=== PATIENT | female | born 1990 | race Caucasian/White ===

== ENCOUNTER → 2016-11-18 | Outpatient (CLI) | payer MEDICAID | LOC: MW.CHOBGYN 12:18 | PROVIDERS: ATTEND Advanced Practice Midwife | DX: Z34.90 Encounter for supervision of normal pregnancy, unspecified, unspecified trimester (principal) | CPT/HCPCS: 36415; 82950; 85027 ==

== ENCOUNTER 2016-12-31 10:03 | Inpatient (IN) | payer MEDICAID ==
[2016-12-31] MEDS ORDERED: Misoprostol 200 MCG Tab PO PRN (11:08)
[2016-12-31] MEDS ORDERED: Methylergonovine 0.2 MG/1 ML Amp IM PRN (11:08)
[2016-12-31] MEDS ORDERED: Sodium Chloride 0.9% 10 ML Syringe FLUSH PRN (11:08)
[2016-12-31] MEDS ORDERED: Terbutaline 1 MG/ML SDV SUBCUT PRN (11:08)
[2016-12-31] MEDS ORDERED: Carboprost Tromethamine 250 MCG/1 ML Amp IM PRN (11:08)
[2016-12-31] MEDS ORDERED: Water For Irrigation,Sterile 1,000 ML Container IRR PRN (11:08)
[2016-12-31] MEDS ORDERED: Sodium Chloride 0.9% 2.5 ML Syringe FLUSH PRN (11:08)
[2016-12-31] MEDS ORDERED: Lidocaine 1% 50 ML MDV INJECT PRN (11:08)
[2016-12-31] MEDS ORDERED: Nalbuphine 10 MG/1 ML Vial IVPUSH PRN ×2 (11:08→13:38)
[2016-12-31] MEDS ORDERED: Misoprostol 25 MCG (1/4 of 100 MCG) Tab VAG SCH (11:15)
[2016-12-31] MEDS ORDERED: Oxytocin/Lactated Ringers 30 UNIT/500 ML BAG IV SCH ×2 (11:15)
[2016-12-31] MEDS ORDERED: Misoprostol 25 MCG (1/4 of 100 MCG) Tab PO SCH (11:15)
[2016-12-31 12:16] LABS: CHLORIDE,CL 113 mmol/L (98-110); SODIUM,NA 140 mmol/L (136-146)
[2016-12-31] MEDS: NIFEdipine 30 MG Tab.ER PO SCH (14:38)
[2016-12-31] MEDS ORDERED: Meperidine PF 50 MG/ML Syringe IVPUSH PRN ×2 (14:42→17:10)
--- NOTE | 2016-12-31 15:04 | US ---
EXAMINATION: Transabdominal obstetric ultrasound HISTORY: No movement COMPARISON: 10/01/2016 TECHNIQUE: Grayscale images obtained. FINDINGS: The cranial bones appear to be overlapping at the sutures. No cardiac activity is noted. T here is a possibly of amniotic fluid. The cervical length measures 3.5 cm. IMPRESSION: No heart tones, oligohydramnios, and overlapping skull bones consistent with demise.
[2016-12-31] MEDS ORDERED: hydrALAZINE 20 MG/ML SDV IVPUSH ONE ×2 (16:15→17:10)
--- NOTE | 2016-12-31 17:07 | PCM.LDHP ---
L&D History of Present Illness - General Date of Service: 12/31/16 Admit Problem/Dx: Patient Status Order with Admit Dx/Problem 12/31/16 10:38 Patient Status [ADT] Routine 12/31/16 11:15 Patient Status [ADT] Routine Admission Diagnosis/Problem Admission Diagnosis/Problem complications 12/31/16 17:02 26 yo EDC 02/16/2017 33 5/7 wks AB+, [place],. Comes in due to decreased movement. U/S noted no cardiac activity. IUFD Source of Information: Patient History Limitations: Reports: No limitations - History of Present Illness Pain Score: 6 Improves with: Reports: None Worsens with: Reports: None Associated Symptoms: Reports: N - Related Data Allergies/Adverse Reactions: Allergies Allergy/AdvReac Type Severity Reaction Status Date / Time Latex, Natural Rubber Allergy Itching Verified 08/06/15 20:46 Penicillins Allergy Cannot Verified 08/06/15 20:46 Remember pineapple Allergy Anaphylactic Verified 08/06/15 20:46 Shock Home Medications: Home Meds . [No Known Home Meds] 01/01/15 [History] Past Medical History Genitourinary History: Reports: Other (see below) Other Genitourinary History: etopic pregancy [employer] WORK[employer] History: Reports: Ectopic Neurological History: Reports: Migraines Psychiatric History: Reports: Anxiety, Bipolar, Depression - Past Surgical History HEENT Surgical History: Reports: Oral surgery Female Surgical History: Reports: section Social & Family History - Family History Family Medical History: Noncontributory - Tobacco Use Smoking Status *Q: Current Every Day Smoker Years of Tobacco use: 5 Packs/Tins Daily: 0.8 - Alcohol Use Days Per Week of Alcohol Use: 2 Number of Drinks Per Day: 12 Total Drinks Per Week: 24 - Recreational Drug Use Recreational Drug Use: Yes Drug Use in Last 12 Months: Yes Recreational Drug Type: Reports: Marijuana/Hashish H&P Review of Systems - Review of Systems: Review Of Systems: See Below General: Reports: no symptoms HEENT: Reports: no symptoms Pulmonary: Reports: No Symptoms Cardiovascular: Reports: no symptoms Gastrointestinal: Reports: No symptoms Genitourinary: Reports: no symptoms Musculoskeletal: Reports: no symptoms Skin: Reports: no symptoms Psychiatric: Reports: no symptoms Neurological: Reports: No Symptoms Hematologic/Lymphatic: Reports: no symptoms Immunologic: Reports: no symptoms L&D Exam - Exam Exam: See Below - Vital Signs Vital Signs: Last Vital Signs Temp Pulse Resp BP 170/99 H 12/31/16 14:38 Pulse Ox Weight: 66.95 kg - OB Specific Presentation: Vertex - Welch Score Welch Score Cervix Position: Posterior Welch Score Consistency: Firm Welch Score Effacement: 0-30% Welch Score Dilation: Closed Welch Score Infant's Station: -3 Welch Score Total: 0 - Exam General: alert, oriented, cooperative HEENT: Hearing intact Cardiovascular: regular rhythm Abdomen: soft (gravid) Rectal Exam: Deferred Genitourinary: Normal external exam Back Exam: full range of motion Extremities: normal inspection Skin: warm, dry, intact Psychiatric: alert, normal affect, normal mood - Patient Data Lab Results last 24 hrs: Laboratory Results - last 24 hr 12/31/16 12/31/16 12/31/16 Range/Units 11:00 11:00 11:00 WBC (4.0-11.0) K/uL RBC (4.30-5.90) M/uL Hgb (12.0-16.0) g/dL Hct (36.0-46.0) % MCV (80.0-98.0) fL MCH (27.0-32.0) pg MCHC (31.0-37.0) g/dL RDW Std Deviation (28.0-62.0) fl RDW Coeff of Nyla (11.0-15.0) % Plt Count (150-400) K/uL MPV (7.40-12.00) fL Nucleated RBC % /100WBC Nucleated RBCs # K/uL Sodium (136-146) mmol/L Potassium (3.5-5.1) mmol/L Chloride (98-110) mmol/L Carbon Dioxide (21-31) mmol/L BUN (6.0-23.0) mg/dL Creatinine (0.6-1.5) mg/dL Est Cr Clr Drug Dosing mL/min Estimated GFR (MDRD) ml/min Glucose (60-110) mg/dL Calcium (8.8-10.8) mg/dL Total Bilirubin (0.1-1.5) mg/dL AST (5-40) IU/L ALT (8-54) IU/L Alkaline Phosphatase (40-150) Total Protein (6.0-8.0) g/dL Albumin (3.5-5.0) g/dL Globulin (2.0-3.5) g/dL Albumin/Globulin Ratio (1.3-2.8) Urine Color YELLOW Urine Appearance CLEAR Urine pH 7.0 (5.0-8.0) Ur Specific [employer] <= 1.005 (1.001-1.035) Urine Protein NEGATIVE (NEGATIVE) mg/dL Urine Glucose (UA) NEGATIVE (NEGATIVE) mg/dL Urine Ketones NEGATIVE (NEGATIVE) mg/dL Urine Occult Blood NEGATIVE (NEGATIVE) Urine Nitrite NEGATIVE (NEGATIVE) Urine Bilirubin NEGATIVE (NEGATIVE) Urine Urobilinogen 0.2 (<2.0) EU/dL Ur Leukocyte Esterase SMALL (NEGATIVE) Ur Random Creatinine 13.5 mg/dL U Random Total Protein < 6.8 mg/dL Protein/Creatinin Ratio Urine Opiates Screen NEGATIVE (NEGATIVE) Ur Oxycodone Screen NEGATIVE (NEGATIVE) Urine Methadone Screen NEGATIVE (NEGATIVE) Ur Barbiturates Screen NEGATIVE (NEGATIVE) Ur Phencyclidine Scrn NEGATIVE (NEGATIVE) Ur Amphetamine Screen NEGATIVE (NEGATIVE) U Methamphetamines Scrn NEGATIVE (NEGATIVE) U Benzodiazepines Scrn NEGATIVE (NEGATIVE) U Cocaine Metab Screen NEGATIVE (NEGATIVE) U Marijuana (THC) Screen NEGATIVE (NEGATIVE) Blood Type Antibody Screen 12/31/16 12/31/16 12/31/16 Range/Units 11:38 11:38 11:38 WBC 12.01 H (4.0-11.0) K/uL RBC 4.05 L (4.30-5.90) M/uL Hgb 11.3 L (12.0-16.0) g/dL Hct 34.6 L (36.0-46.0) % MCV 85.4 (80.0-98.0) fL MCH 27.9 (27.0-32.0) pg MCHC 32.7 (31.0-37.0) g/dL RDW Std Deviation 39.4 (28.0-62.0) fl RDW Coeff of Nyla 13 (11.0-15.0) % Plt Count 174 (150-400) K/uL MPV 12.30 H (7.40-12.00) fL Nucleated RBC % 0.0 /100WBC Nucleated RBCs # 0 K/uL Sodium 140 (136-146) mmol/L Potassium 3.8 (3.5-5.1) mmol/L Chloride 113 H (98-110) mmol/L Carbon Dioxide 17 L (21-31) mmol/L BUN 4 L (6.0-23.0) mg/dL Creatinine 0.6 (0.6-1.5) mg/dL Est Cr Clr Drug Dosing 114.35 mL/min Estimated GFR (MDRD) > 60.0 ml/min Glucose 66 (60-110) mg/dL Calcium 8.8 (8.8-10.8) mg/dL Total Bilirubin 0.4 (0.1-1.5) mg/dL AST 20 (5-40) IU/L ALT 17 (8-54) IU/L Alkaline Phosphatase 124 (40-150) Total Protein 6.3 (6.0-8.0) g/dL Albumin 3.2 L (3.5-5.0) g/dL Globulin 3.1 (2.0-3.5) g/dL Albumin/Globulin Ratio 1.0 L (1.3-2.8) Urine Color Urine Appearance Urine pH (5.0-8.0) Ur Specific [employer] (1.001-1.035) Urine Protein (NEGATIVE) mg/dL Urine Glucose (UA) (NEGATIVE) mg/dL Urine Ketones (NEGATIVE) mg/dL Urine Occult Blood (NEGATIVE) Urine Nitrite (NEGATIVE) Urine Bilirubin (NEGATIVE) Urine Urobilinogen (<2.0) EU/dL Ur Leukocyte Esterase (NEGATIVE) Ur Random Creatinine mg/dL U Random Total Protein mg/dL Protein/Creatinin Ratio Urine Opiates Screen (NEGATIVE) Ur Oxycodone Screen (NEGATIVE) Urine Methadone Screen (NEGATIVE) Ur Barbiturates Screen (NEGATIVE) Ur Phencyclidine Scrn (NEGATIVE) Ur Amphetamine Screen (NEGATIVE) U Methamphetamines Scrn (NEGATIVE) U Benzodiazepines Scrn (NEGATIVE) U Cocaine Metab Screen (NEGATIVE) U Marijuana (THC) Screen (NEGATIVE) Blood Type AB POSITIVE Antibody Screen NEGATIVE Result Diagrams: 12/31/16 11:38 12/31/16 11:38 - Problem List (1) IUFD at 20 weeks or more of gestation SNOMED Code(s): 905423322, 456627026 ICD Code: O36.4XX0 - MATERNAL CARE FOR INTRAUTERINE , NOT APPLICABLE OR UNSP Status: Acute Priority: High Current Visit: Yes (2) Supervision of normal IUP (intrauterine ) in multigravida SNOMED Code(s): 238472659, 458771471, 539893673 ICD Code: Z34.90 - ENCNTR FOR SUPRVSN OF NORMAL , UNSP, UNSP TRIMESTER Status: Acute Priority: High Current Visit: Yes Qualifiers: Trimester: third trimester Qualified Code(s): Z34.83 - Encounter for supervision of other normal , third trimester Problem List Initiated/Reviewed/Updated: Yes Orders Last 24hrs: Active Orders 24 hr Category Date Time Status Patient Status [ADT] Routine ADT 12/31/16 11:15 Active Bedrest Bathroom Privileges [RC] ASDIRECTED Care 12/31/16 11:15 Active Communication Order [RC] ASDIRECTED Care 12/31/16 11:15 Active Communication Order [RC] ASDIRECTED Care 12/31/16 11:15 Active Communication Order [RC] ASDIRECTED Care 12/31/16 11:15 Active Non Stress Test [RC] PER UNIT ROUTINE Care 12/31/16 10:38 Active May Shower [RC] ASDIRECTED Care 12/31/16 11:15 Active Notify Provider [RC] PRN Care 12/31/16 11:15 Active Notify Provider [RC] PRN Care 12/31/16 11:15 Active Notify Provider [RC] PRN Care 12/31/16 11:15 Active Notify Provider [RC] STAT Care 12/31/16 11:15 Active Oxygen Therapy [RC] ASDIRECTED Care 12/31/16 11:15 Active Peripheral IV Care [RC] . DIRECTED Care 12/31/16 11:08 Active Up ad Sara [RC] ASDIRECTED Care 12/31/16 10:38 Active Up ad Sara [RC] ASDIRECTED Care 12/31/16 11:15 Active Vaginal Exam [RC] Click To Edit Care 12/31/16 10:38 Active Vaginal Exam [RC] PRN Care 12/31/16 11:15 Active Vaginal Exam [RC] PRN Care 12/31/16 11:15 Active Vital Signs [RC] PER UNIT ROUTINE Care 12/31/16 10:38 Active Vital Signs [RC] PER UNIT ROUTINE Care 12/31/16 11:15 Active Vital Signs [RC] PER UNIT ROUTINE Care 12/31/16 11:15 Active Regular Diet [DIET] Diet 12/31/16 Lunch Active Carboprost Tromethamine [Hemabate DS] Med 12/31/16 11:08 Active 250 mcg IM ASDIRECTED PRN Lactated Ringers [Ringers, Lactated] 1,000 ml Med 12/31/16 11:15 Active IV ASDIRECTED Lidocaine 1% [Xylocaine 1%] Med 12/31/16 11:08 Active 50 ml INJECT .ONCE PRN Meperidine [Demerol] Med 12/31/16 14:42 Active 50 mg IVPUSH Q4H PRN Methylergonovine [Methergine] Med 12/31/16 11:08 Active 0.2 mg IM ASDIRECTED PRN Misoprostol [Cytotec] Med 12/31/16 11:08 Active 200 mcg PO .ONCE PRN Misoprostol [Cytotec] Med 12/31/16 11:15 Active 25 mcg PO .ONCE Misoprostol [Cytotec] Med 12/31/16 11:15 Active 25 mcg VAG .ONCE NIFEdipine [Procardia XL] Med 12/31/16 14:30 Active 30 mg PO BID Nalbuphine [Nubain] Med 12/31/16 13:38 Active 10 mg IVPUSH Q1H PRN Oxytocin/Lactated Ringers [Pitocin in LR 30 Units/500 Med 12/31/16 11:15 Active ML] 30 unit in 500 ml IV TITRATE Sodium Chloride 0.9% [Saline Flush] Med 12/31/16 11:08 Active 10 ml FLUSH ASDIRECTED PRN Sodium Chloride 0.9% [Saline Flush] Med 12/31/16 11:08 Active 2.5 ml FLUSH ASDIRECTED PRN Terbutaline [Brethine] Med 12/31/16 11:08 Active 0.25 mg SUBCUT ASDIRECTED PRN Water For Irrigation,Sterile [Sterile Water for Med 12/31/16 11:08 Active Irrigation] 1,000 ml IRR ASDIRECTED PRN hydrALAZINE [Apresoline] Med 12/31/16 16:58 Once 5 mg IVPUSH ONETIME ONE Medication Administration Instruction [OM.PC] Q3H Oth 12/31/16 11:15 Ordered Peripheral IV Insertion Adult [OM.PC] Routine Oth 12/31/16 11:15 Ordered Resuscitation Status Routine Resus Stat 12/31/16 10:38 Ordered Medication Orders Carboprost Tromethamine (Hemabate Ds) 250 mcg IM ASDIRECTED PRN PRN Reason: Post Hemorrhage Hydralazine HCl (Apresoline) 5 mg IVPUSH ONETIME ONE Stop: 12/31/16 17:11 Lactated Ringer's (Ringers, Lactated) 1,000 mls @ 150 mls/hr IV ASDIRECTED PLACIDO Oxytocin/Lactated Ringer's (Pitocin In Lr 30 Units/500 Ml) 30 unit in 500 mls @ 2 mls/hr IV TITRATE PLACIDO; 2 MUNITS/MIN PRN Reason: Protocol Lidocaine HCl (Xylocaine 1%) 50 ml INJECT .ONCE PRN PRN Reason: Laceration repair Meperidine HCl (Demerol) 50 mg IVPUSH Q4H PRN PRN Reason: Pain Last Admin: 12/31/16 14:52 Dose: 50 mg Methylergonovine Maleate (Methergine) 0.2 mg IM ASDIRECTED PRN PRN Reason: Post Hemorrhage Misoprostol (Cytotec) 200 mcg PO .ONCE PRN PRN Reason: Post Hemorrhage Misoprostol (Cytotec) 25 mcg VAG .ONCE PLACIDO Last Admin: 12/31/16 12:25 Dose: 25 mcg Misoprostol (Cytotec) 25 mcg PO .ONCE PLACIDO Last Admin: 12/31/16 12:25 Dose: 25 mcg Nalbuphine HCl (Nubain) 10 mg IVPUSH Q1H PRN PRN Reason: Pain (severe 7-10) Last Admin: 12/31/16 14:00 Dose: 10 mg Nifedipine (Procardia Xl) 30 mg PO BID PLACIDO Last Admin: 12/31/16 14:38 Dose: 30 mg Sodium Chloride (Saline Flush) 10 ml FLUSH ASDIRECTED PRN PRN Reason: Keep Vein Open Sodium Chloride (Saline Flush) 2.5 ml FLUSH ASDIRECTED PRN PRN Reason: Keep Vein Open Sterile Water (Sterile Water For Irrigation) 1,000 ml IRR ASDIRECTED PRN PRN Reason: delivery Terbutaline Sulfate (Brethine) 0.25 mg SUBCUT ASDIRECTED PRN PRN Reason: Tacysystole Assessment/Plan Comment:: IOL due to IUFD A: 26 yo EDC 02/16/2017 33 5/7 wks AB+, [place], History of section 2011 and ectopic. Comes in due to decreased movement. U/S noted no cardiac activity. IUFD P: Admit to L&D, Cytotec x1 then low dose pitocin until active labor then increase pre protocal. AROM prn. Anticipate . Counseling regarding IUFD, plan of care and labor expectations.
[2016-12-31] MEDS: Lactated Ringers 1,000 ML IV SCH ×2 (17:37→20:05)
[2016-12-31] MEDS ORDERED: Ondansetron 4 MG/2 ML SDV IVPUSH PRN ×2 (18:36→19:07)
[2016-12-31] MEDS ORDERED: Ropivacaine HCl/PF 100 ML ONE (20:00)
[2016-12-31] MEDS ORDERED: fentaNYL 100 MCG/2 ML SDV ONE (20:00)
[2016-12-31] MEDS ORDERED: Midazolam 1 MG/ML 2 ML SDV ONE (20:05)
--- NOTE | 2016-12-31 20:39 | PCM.PREANE ---
Preanesthetic Assessment - Anesthesia/Transfusion/Family Hx Anesthesia History: Prior Anesthesia Without Reaction Family History of Anesthesia Reaction: No Transfusion History: Prior Transfusion Without Reaction Intubation History: Unknown - Review of Systems General: Other (shivering "from pain") Pulmonary: No Symptoms Cardiovascular: No Symptoms Gastrointestinal: Nausea Neurological: No Symptoms Other: Reports: Anxiety - Physical Assessment NPO Status Date: 12/31/16 NPO Status Time: 20:37 (liquids) Blood Pressure: 170/99 Vital Signs: Last Vital Signs Temp Pulse Resp BP 170/99 H 12/31/16 14:38 Pulse Ox Height: 5 ft 2 in Weight: 147 lb 9.6 oz ASA Class: 2 Mental Status: Alert & Oriented x3 Airway Class: Mallampati = 2 Dentition: Reports: Normal Dentition Thyro-Mental Finger Breadths: 3 Mouth Opening Finger Breadths: 3 ROM/Head Extension: Full Lungs: Clear to auscultation, Normal respiratory effort - Lab Values: Laboratory Last Values WBC 12.01 K/uL (4.0-11.0) H 12/31/16 11:38 RBC 4.05 M/uL (4.30-5.90) L 12/31/16 11:38 Hgb 11.3 g/dL (12.0-16.0) L 12/31/16 11:38 Hct 34.6 % (36.0-46.0) L 12/31/16 11:38 MCV 85.4 fL (80.0-98.0) 12/31/16 11:38 MCH 27.9 pg (27.0-32.0) 12/31/16 11:38 MCHC 32.7 g/dL (31.0-37.0) 12/31/16 11:38 RDW Std Deviation 39.4 fl (28.0-62.0) 12/31/16 11:38 RDW Coeff of Nyla 13 % (11.0-15.0) 12/31/16 11:38 Plt Count 174 K/uL (150-400) 12/31/16 11:38 MPV 12.30 fL (7.40-12.00) H 12/31/16 11:38 Nucleated RBC % 0.0 /100WBC 12/31/16 11:38 Nucleated RBCs # 0 K/uL 12/31/16 11:38 Sodium 140 mmol/L (136-146) 12/31/16 11:38 Potassium 3.8 mmol/L (3.5-5.1) 12/31/16 11:38 Chloride 113 mmol/L (98-110) H 12/31/16 11:38 Carbon Dioxide 17 mmol/L (21-31) L 12/31/16 11:38 BUN 4 mg/dL (6.0-23.0) L 12/31/16 11:38 Creatinine 0.6 mg/dL (0.6-1.5) 12/31/16 11:38 Est Cr Clr Drug Dosing 114.35 mL/min 12/31/16 11:38 Estimated GFR (MDRD) > 60.0 ml/min 12/31/16 11:38 Glucose 66 mg/dL (60-110) 12/31/16 11:38 Calcium 8.8 mg/dL (8.8-10.8) 12/31/16 11:38 Total Bilirubin 0.4 mg/dL (0.1-1.5) 12/31/16 11:38 AST 20 IU/L (5-40) 12/31/16 11:38 ALT 17 IU/L (8-54) 12/31/16 11:38 Alkaline Phosphatase 124 (40-150) 12/31/16 11:38 Total Protein 6.3 g/dL (6.0-8.0) 12/31/16 11:38 Albumin 3.2 g/dL (3.5-5.0) L 12/31/16 11:38 Globulin 3.1 g/dL (2.0-3.5) 12/31/16 11:38 Albumin/Globulin Ratio 1.0 (1.3-2.8) L 12/31/16 11:38 Urine Color YELLOW 12/31/16 11:00 Urine Appearance CLEAR 12/31/16 11:00 Urine pH 7.0 (5.0-8.0) 12/31/16 11:00 Ur Specific [employer] <= 1.005 (1.001-1.035) 12/31/16 11:00 Urine Protein NEGATIVE mg/dL (NEGATIVE) 12/31/16 11:00 Urine Glucose (UA) NEGATIVE mg/dL (NEGATIVE) 12/31/16 11:00 Urine Ketones NEGATIVE mg/dL (NEGATIVE) 12/31/16 11:00 Urine Occult Blood NEGATIVE (NEGATIVE) 12/31/16 11:00 Urine Nitrite NEGATIVE (NEGATIVE) 12/31/16 11:00 Urine Bilirubin NEGATIVE (NEGATIVE) 12/31/16 11:00 Urine Urobilinogen 0.2 EU/dL (<2.0) 12/31/16 11:00 Ur Leukocyte Esterase SMALL (NEGATIVE) 12/31/16 11:00 Ur Random Creatinine 13.5 mg/dL 12/31/16 11:00 U Random Total Protein < 6.8 mg/dL 12/31/16 11:00 Protein/Creatinin Ratio 12/31/16 11:00 Urine Opiates Screen NEGATIVE (NEGATIVE) 12/31/16 11:00 Ur Oxycodone Screen NEGATIVE (NEGATIVE) 12/31/16 11:00 Urine Methadone Screen NEGATIVE (NEGATIVE) 12/31/16 11:00 Ur Barbiturates Screen NEGATIVE (NEGATIVE) 12/31/16 11:00 Ur Phencyclidine Scrn NEGATIVE (NEGATIVE) 12/31/16 11:00 Ur Amphetamine Screen NEGATIVE (NEGATIVE) 12/31/16 11:00 U Methamphetamines Scrn NEGATIVE (NEGATIVE) 12/31/16 11:00 U Benzodiazepines Scrn NEGATIVE (NEGATIVE) 12/31/16 11:00 U Cocaine Metab Screen NEGATIVE (NEGATIVE) 12/31/16 11:00 U Marijuana (THC) Screen NEGATIVE (NEGATIVE) 12/31/16 11:00 Blood Type AB POSITIVE 12/31/16 11:38 Antibody Screen NEGATIVE 12/31/16 11:38 - Allergies Allergies/Adverse Reactions: Allergies Allergy/AdvReac Type Severity Reaction Status Date / Time Latex, Natural Rubber Allergy Itching Verified 08/06/15 20:46 Penicillins Allergy Cannot Verified 08/06/15 20:46 Remember pineapple Allergy Anaphylactic Verified 08/06/15 20:46 Shock - Blood Blood Available: No Product(s) Available: None - Anesthesia Plan Free Text/Narrative:: Labor Epidural for [facility] demise - Acknowledgements Anesthesia Type Planned: Epidural Pt an Appropriate Candidate for the Planned Anesthesia: Yes Alternatives and Risks of Anesthesia Discussed w Pt/Guardian: Yes Pt/Guardian Understands and Agrees with Anesthesia Plan: Yes PreAnesthesia Questionnaire Genitourinary History: Reports: Other (see below) Other Genitourinary History: etopic pregancy [employer]ER History: Reports: Ectopic Neurological History: Reports: Migraines Psychiatric History: Reports: Anxiety, Bipolar, Depression - Past Surgical History HEENT Surgical History: Reports: Oral surgery Female Surgical History: Reports: section, Other (see below) ( Ectopic ) - SUBSTANCE USE Smoking Status *Q: Current Every Day Smoker Tobacco Use Within Last Twelve Months: Cigarettes Days Per Week of Alcohol Use: 2 Number of Drinks Per Day: 12 Total Drinks Per Week: 24 Recreational Drug Use History: Yes Recreational Drug Type: Reports: Marijuana/Hashish - HOME MEDS Home Medications: Home Meds . [No Known Home Meds] 01/01/15 [History] - CURRENT (IN HOUSE) MEDS Current Meds: Current Medications Carboprost Tromethamine (Hemabate Ds) 250 mcg IM ASDIRECTED PRN PRN Reason: Post Hemorrhage Lactated Ringer's (Ringers, Lactated) 1,000 mls @ 150 mls/hr IV ASDIRECTED PLACIDO Last Admin: 12/31/16 20:05 Dose: 150 mls/hr Oxytocin/Lactated Ringer's (Pitocin In Lr 30 Units/500 Ml) 30 unit in 500 mls @ 2 mls/hr IV TITRATE PLACIDO; 2 MUNITS/MIN PRN Reason: Protocol Last Admin: 12/31/16 17:50 Dose: 2 munits/min, 2 mls/hr Lidocaine HCl (Xylocaine 1%) 50 ml INJECT .ONCE PRN PRN Reason: Laceration repair Meperidine HCl (Demerol) 50 mg IVPUSH Q1H PRN PRN Reason: Pain Last Admin: 12/31/16 17:38 Dose: 50 mg Methylergonovine Maleate (Methergine) 0.2 mg IM ASDIRECTED PRN PRN Reason: Post Hemorrhage Misoprostol (Cytotec) 200 mcg PO .ONCE PRN PRN Reason: Post Hemorrhage Misoprostol (Cytotec) 25 mcg VAG .ONCE PLACIDO Last Admin: 12/31/16 12:25 Dose: 25 mcg Misoprostol (Cytotec) 25 mcg PO .ONCE PLACIDO Last Admin: 12/31/16 12:25 Dose: 25 mcg Nalbuphine HCl (Nubain) 10 mg IVPUSH Q1H PRN PRN Reason: Pain (severe 7-10) Last Admin: 12/31/16 14:00 Dose: 10 mg Nifedipine (Procardia Xl) 30 mg PO BID PLACIDO Last Admin: 12/31/16 14:38 Dose: 30 mg Ondansetron HCl (Zofran) 4 mg IVPUSH Q4H PRN PRN Reason: Nausea/Vomiting Sodium Chloride (Saline Flush) 10 ml FLUSH ASDIRECTED PRN PRN Reason: Keep Vein Open Sodium Chloride (Saline Flush) 2.5 ml FLUSH ASDIRECTED PRN PRN Reason: Keep Vein Open Sterile Water (Sterile Water For Irrigation) 1,000 ml IRR ASDIRECTED PRN PRN Reason: delivery Terbutaline Sulfate (Brethine) 0.25 mg SUBCUT ASDIRECTED PRN PRN Reason: Tacysystole Discontinued Medications Fentanyl (Sublimaze) Confirm Administered Dose 100 mcg .ROUTE .STK-MED ONE Stop: 12/31/16 20:01 Hydralazine HCl (Apresoline) 5 mg IVPUSH ONETIME ONE Stop: 12/31/16 16:16 Last Admin: 12/31/16 16:16 Dose: 5 mg Hydralazine HCl (Apresoline) 5 mg IVPUSH ONETIME ONE Stop: 12/31/16 17:11 Last Admin: 12/31/16 17:44 Dose: 5 mg Oxytocin/Lactated Ringer's (Pitocin In Lr 30 Units/500 Ml) 30 unit in 500 mls @ 500 mls/hr IV TITRATE PLACIDO; 500 MUNITS/MIN PRN Reason: Protocol Stop: 12/31/16 12:14 Ropivacaine (Naropin 0.2%) Confirm Administered Dose 100 mls @ as directed .ROUTE .STK-MED ONE Stop: 12/31/16 20:01 Meperidine HCl (Demerol) 50 mg IVPUSH Q4H PRN PRN Reason: Pain Last Admin: 12/31/16 14:52 Dose: 50 mg Midazolam HCl (Versed 1 Mg/Ml) Confirm Administered Dose 2 mg .ROUTE .STK-MED ONE Stop: 12/31/16 20:06 Nalbuphine HCl (Nubain) 10 mg IVPUSH Q1H PRN PRN Reason: Pain (severe 7-10) Stop: 12/31/16 13:09 Last Admin: 12/31/16 12:24 Dose: 10 mg Ondansetron HCl (Zofran) 4 - 8 mg IVPUSH Q4H PRN PRN Reason: Nausea/Vomiting
[2017-01-01] MEDS ORDERED: Docusate Sodium 100 MG Cap PO PRN (01:23)
[2017-01-01] MEDS ORDERED: Benzocaine/Menthol 20%-0.5% Spray 78 GM Cannister TOP PRN (01:23)
[2017-01-01] MEDS ORDERED: Acetaminophen 500 MG Tab PO PRN ×2 (01:23)
[2017-01-01] MEDS ORDERED: Witch Hazel Medicated Pads 40/Jar TOP PRN (01:23)
[2017-01-01] MEDS ORDERED: Bisacodyl 10 MG Supp RECTAL PRN (01:23)
[2017-01-01] MEDS ORDERED: Ibuprofen 400 MG Tab PO PRN (01:23)
[2017-01-01] MEDS ORDERED: Ibuprofen 800 MG Tab PO PRN (01:23)
--- NOTE | 2017-01-01 01:38 | PCM.DEL ---
L & D Note - General Info Date of Service: 01/01/17 Mother's Due Date: 02/16/17 - Delivery Note Labor: induced by oxytocin Cervical Ripening Method: Misoprostil Delivery Outcome: Stillbirth Infant Delivery Method: Spontaneous Vaginal Delivery Delivery Mode: Spontaneous Presentation: Vertex Nuchal cord: none Anesthesia Type: None Amniotic Fluid Description: Purulent Episiotomy Type: None Laceration: none Placenta: intact, spontaneous Estimated blood loss: 100 Resuscitation needed: No Score 1 min: 0 Score 5 min: 0 Score 10 min: 0 Post Delivery Events: Unexpected Stillbirth (Came into L&D for decreased movement and noted no cardiac activity) Second Stage Interventions: Reports: Pushing Effectively Delivery Comments (Free Text/Narrative):: of IUFD at 0100. Head delivered with pushing and vomiting, shoulders and body followed. Cord clamped and cut. Pitocin to IVF. Infant taken to warmer. Placenta delivered grossly intact. Inspection noted intact perineum. EBL 100cc, APGARS 0/0, Wt: 4lb 12oz. Mother left in stable condition for recovery holding her infant. Induction Criteria - Welch Score Welch Score Dilation: 1-2 cm Welch Score Effacement: 40-50% Welch Score Infant's Station: -3 Welch Score Consistency: Medium Welch Score Cervix Position: Posterior Welch Score Total: 3 Welch Score Presenting Part: Reports: Cephalic - Induction Gestational Age >/= 39 wks: No Medical indication: IUFD Estimated pelvis: Reports: Adequate - General Info Date of Service: 01/01/17 Admission Dx/Problem (Free Text): Patient Status Order with Admit Dx/Problem 12/31/16 10:38 Patient Status [ADT] Routine 12/31/16 11:15 Patient Status [ADT] Routine Admission Diagnosis/Problem Admission Diagnosis/Problem complications 12/31/16 17:02 26 yo EDC 02/16/2017 33 5/7 wks AB+, [place],. Comes in due to decreased movement. U/S noted no cardiac activity. IUFD Functional Status: Reports: pain controlled - Review of Systems General: Reports: No Symptoms HEENT: Reports: no symptoms Pulmonary: Reports: no symptoms Cardiovascular: Reports: No Symptoms Gastrointestinal: Reports: No symptoms Genitourinary: Reports: no symptoms Musculoskeletal: Reports: no symptoms Skin: Reports: no symptoms Neurological: Reports: No Symptoms Psychiatric: Reports: no symptoms - Patient Data Vitals - most recent: Last Vital Signs Temp Pulse Resp BP 170/99 H 12/31/16 20:39 Pulse Ox Weight - most recent: 66.95 kg Lab Results last 24 hrs: Laboratory Results - last 24 hr 12/31/16 12/31/16 12/31/16 Range/Units 11:00 11:00 11:00 WBC (4.0-11.0) K/uL RBC (4.30-5.90) M/uL Hgb (12.0-16.0) g/dL Hct (36.0-46.0) % MCV (80.0-98.0) fL MCH (27.0-32.0) pg MCHC (31.0-37.0) g/dL RDW Std Deviation (28.0-62.0) fl RDW Coeff of Nyla (11.0-15.0) % Plt Count (150-400) K/uL MPV (7.40-12.00) fL Nucleated RBC % /100WBC Nucleated RBCs # K/uL Sodium (136-146) mmol/L Potassium (3.5-5.1) mmol/L Chloride (98-110) mmol/L Carbon Dioxide (21-31) mmol/L BUN (6.0-23.0) mg/dL Creatinine (0.6-1.5) mg/dL Est Cr Clr Drug Dosing mL/min Estimated GFR (MDRD) ml/min Glucose (60-110) mg/dL Calcium (8.8-10.8) mg/dL Total Bilirubin (0.1-1.5) mg/dL AST (5-40) IU/L ALT (8-54) IU/L Alkaline Phosphatase (40-150) Total Protein (6.0-8.0) g/dL Albumin (3.5-5.0) g/dL Globulin (2.0-3.5) g/dL Albumin/Globulin Ratio (1.3-2.8) Urine Color YELLOW Urine Appearance CLEAR Urine pH 7.0 (5.0-8.0) Ur Specific [place] <= 1.005 (1.001-1.035) Urine Protein NEGATIVE (NEGATIVE) mg/dL Urine Glucose (UA) NEGATIVE (NEGATIVE) mg/dL Urine Ketones NEGATIVE (NEGATIVE) mg/dL Urine Occult Blood NEGATIVE (NEGATIVE) Urine Nitrite NEGATIVE (NEGATIVE) Urine Bilirubin NEGATIVE (NEGATIVE) Urine Urobilinogen 0.2 (<2.0) EU/dL Ur Leukocyte Esterase SMALL (NEGATIVE) Ur Random Creatinine 13.5 mg/dL U Random Total Protein < 6.8 mg/dL Protein/Creatinin Ratio Urine Opiates Screen NEGATIVE (NEGATIVE) Ur Oxycodone Screen NEGATIVE (NEGATIVE) Urine Methadone Screen NEGATIVE (NEGATIVE) Ur Barbiturates Screen NEGATIVE (NEGATIVE) Ur Phencyclidine Scrn NEGATIVE (NEGATIVE) Ur Amphetamine Screen NEGATIVE (NEGATIVE) U Methamphetamines Scrn NEGATIVE (NEGATIVE) U Benzodiazepines Scrn NEGATIVE (NEGATIVE) U Cocaine Metab Screen NEGATIVE (NEGATIVE) U Marijuana (THC) Screen NEGATIVE (NEGATIVE) Blood Type Antibody Screen 12/31/16 12/31/16 12/31/16 Range/Units 11:38 11:38 11:38 WBC 12.01 H (4.0-11.0) K/uL RBC 4.05 L (4.30-5.90) M/uL Hgb 11.3 L (12.0-16.0) g/dL Hct 34.6 L (36.0-46.0) % MCV 85.4 (80.0-98.0) fL MCH 27.9 (27.0-32.0) pg MCHC 32.7 (31.0-37.0) g/dL RDW Std Deviation 39.4 (28.0-62.0) fl RDW Coeff of Nyla 13 (11.0-15.0) % Plt Count 174 (150-400) K/uL MPV 12.30 H (7.40-12.00) fL Nucleated RBC % 0.0 /100WBC Nucleated RBCs # 0 K/uL Sodium 140 (136-146) mmol/L Potassium 3.8 (3.5-5.1) mmol/L Chloride 113 H (98-110) mmol/L Carbon Dioxide 17 L (21-31) mmol/L BUN 4 L (6.0-23.0) mg/dL Creatinine 0.6 (0.6-1.5) mg/dL Est Cr Clr Drug Dosing 114.35 mL/min Estimated GFR (MDRD) > 60.0 ml/min Glucose 66 (60-110) mg/dL Calcium 8.8 (8.8-10.8) mg/dL Total Bilirubin 0.4 (0.1-1.5) mg/dL AST 20 (5-40) IU/L ALT 17 (8-54) IU/L Alkaline Phosphatase 124 (40-150) Total Protein 6.3 (6.0-8.0) g/dL Albumin 3.2 L (3.5-5.0) g/dL Globulin 3.1 (2.0-3.5) g/dL Albumin/Globulin Ratio 1.0 L (1.3-2.8) Urine Color Urine Appearance Urine pH (5.0-8.0) Ur Specific [place] (1.001-1.035) Urine Protein (NEGATIVE) mg/dL Urine Glucose (UA) (NEGATIVE) mg/dL Urine Ketones (NEGATIVE) mg/dL Urine Occult Blood (NEGATIVE) Urine Nitrite (NEGATIVE) Urine Bilirubin (NEGATIVE) Urine Urobilinogen (<2.0) EU/dL Ur Leukocyte Esterase (NEGATIVE) Ur Random Creatinine mg/dL U Random Total Protein mg/dL Protein/Creatinin Ratio Urine Opiates Screen (NEGATIVE) Ur Oxycodone Screen (NEGATIVE) Urine Methadone Screen (NEGATIVE) Ur Barbiturates Screen (NEGATIVE) Ur Phencyclidine Scrn (NEGATIVE) Ur Amphetamine Screen (NEGATIVE) U Methamphetamines Scrn (NEGATIVE) U Benzodiazepines Scrn (NEGATIVE) U Cocaine Metab Screen (NEGATIVE) U Marijuana (THC) Screen (NEGATIVE) Blood Type AB POSITIVE Antibody Screen NEGATIVE Med Orders - Current: Current Medications Acetaminophen (Tylenol Extra Strength) 500 mg PO Q4H PRN PRN Reason: Pain Acetaminophen (Tylenol Extra Strength) 1,000 mg PO Q4H PRN PRN Reason: Pain Benzocaine/Menthol (Dermoplast Pain Relief 20%-0.5% [place]) 78 gm TOP ASDIRECTED PRN PRN Reason: Perineal Comfort Measure Bisacodyl (Dulcolax) 10 mg RECTAL .ONCE PRN PRN Reason: Constipation Docusate Sodium (Colace) 100 mg PO BID PRN PRN Reason: Constipation Ibuprofen (Motrin) 400 mg PO Q4H PRN PRN Reason: Pain Ibuprofen (Motrin) 800 mg PO Q6H PRN PRN Reason: Pain Oxycodone HCl (Oxycodone) 5 mg PO Q2H PRN PRN Reason: Pain Witch Sandrita (Tucks) 1 pad TOP ASDIRECTED PRN PRN Reason: comfort care Discontinued Medications Carboprost Tromethamine (Hemabate Ds) 250 mcg IM ASDIRECTED PRN PRN Reason: Post Hemorrhage Fentanyl (Sublimaze) Confirm Administered Dose 100 mcg .ROUTE .[employer] ONE Stop: 12/31/16 20:01 Last Admin: 12/31/16 20:40 Dose: Not Given Hydralazine HCl (Apresoline) 5 mg IVPUSH ONETIME ONE Stop: 12/31/16 16:16 Last Admin: 12/31/16 16:16 Dose: 5 mg Hydralazine HCl (Apresoline) 5 mg IVPUSH ONETIME ONE Stop: 12/31/16 17:11 Last Admin: 12/31/16 17:44 Dose: 5 mg Lactated Ringer's (Ringers, Lactated) 1,000 mls @ 150 mls/hr IV ASDIRECTED PLACIDO Last Admin: 12/31/16 20:05 Dose: 150 mls/hr Oxytocin/Lactated Ringer's (Pitocin In Lr 30 Units/500 Ml) 30 unit in 500 mls @ 500 mls/hr IV TITRATE PLACIDO; 500 MUNITS/MIN PRN Reason: Protocol Stop: 12/31/16 12:14 Oxytocin/Lactated Ringer's (Pitocin In Lr 30 Units/500 Ml) 30 unit in 500 mls @ 2 mls/hr IV TITRATE PLACIDO; 2 MUNITS/MIN PRN Reason: Protocol Last Admin: 12/31/16 17:50 Dose: 2 munits/min, 2 mls/hr Ropivacaine (Naropin 0.2%) Confirm Administered Dose 100 mls @ as directed .ROUTE .[employer] ONE Stop: 12/31/16 20:01 Last Admin: 12/31/16 20:40 Dose: Not Given Lidocaine HCl (Xylocaine 1%) 50 ml INJECT .ONCE PRN PRN Reason: Laceration repair Meperidine HCl (Demerol) 50 mg IVPUSH Q4H PRN PRN Reason: Pain Last Admin: 12/31/16 14:52 Dose: 50 mg Meperidine HCl (Demerol) 50 mg IVPUSH Q1H PRN PRN Reason: Pain Last Admin: 12/31/16 17:38 Dose: 50 mg Methylergonovine Maleate (Methergine) 0.2 mg IM ASDIRECTED PRN PRN Reason: Post Hemorrhage Midazolam HCl (Versed 1 Mg/Ml) Confirm Administered Dose 2 mg .ROUTE .[facility]-[employer] ONE Stop: 12/31/16 20:06 Misoprostol (Cytotec) 200 mcg PO .ONCE PRN PRN Reason: Post Hemorrhage Misoprostol (Cytotec) 25 mcg VAG .ONCE PLACIDO Last Admin: 12/31/16 12:25 Dose: 25 mcg Misoprostol (Cytotec) 25 mcg PO .ONCE [facility] Last Admin: 12/31/16 12:25 Dose: 25 mcg Nalbuphine HCl (Nubain) 10 mg IVPUSH Q1H PRN PRN Reason: Pain (severe 7-10) Stop: 12/31/16 13:09 Last Admin: 12/31/16 12:24 Dose: 10 mg Nalbuphine HCl (Nubain) 10 mg IVPUSH Q1H PRN PRN Reason: Pain (severe 7-10) Last Admin: 12/31/16 14:00 Dose: 10 mg Nifedipine (Procardia Xl) 30 mg PO BID [facility] Last Admin: 12/31/16 14:38 Dose: 30 mg Ondansetron HCl (Zofran) 4 - 8 mg IVPUSH Q4H PRN PRN Reason: Nausea/Vomiting Ondansetron HCl (Zofran) 4 mg IVPUSH Q4H PRN PRN Reason: Nausea/Vomiting Sodium Chloride (Saline Flush) 10 ml FLUSH ASDIRECTED PRN PRN Reason: Keep Vein Open Sodium Chloride (Saline Flush) 2.5 ml FLUSH ASDIRECTED PRN PRN Reason: Keep Vein Open Sterile Water (Sterile Water For Irrigation) 1,000 ml IRR ASDIRECTED PRN PRN Reason: delivery Terbutaline Sulfate (Brethine) 0.25 mg SUBCUT ASDIRECTED PRN PRN Reason: Tacysystole - Exam General: alert, cooperative, no acute distress Lungs: Normal respiratory effort Abdomen: soft, no tenderness, no distension (Female) Exam: Normal external exam, Vaginal bleeding Back Exam: full range of motion Extremities: no edema Skin: warm, dry, intact Wound/Incisions: healing well Neurological: no new focal deficit Psy/Mental Status: alert, normal affect, normal mood - Problem List & Annotations (1) IUFD at 20 weeks or more of gestation SNOMED Code(s): 386401809, 368416235 Code(s): O36.4XX0 - MATERNAL CARE FOR INTRAUTERINE , NOT APPLICABLE OR UNSP Status: Acute Priority: High Current Visit: Yes (2) Supervision of normal IUP (intrauterine ) in multigravida SNOMED Code(s): 070631789, 004061902, 401809606 Code(s): Z34.90 - ENCNTR FOR SUPRVSN OF NORMAL , UNSP, UNSP TRIMESTER Status: Acute Priority: High Current Visit: Yes Qualifiers: Trimester: third trimester Qualified Code(s): Z34.83 - Encounter for supervision of other normal , third trimester (3) (normal spontaneous vaginal delivery) SNOMED Code(s): 64312478 Code(s): O80 - ENCOUNTER FOR FULL-TERM UNCOMPLICATED DELIVERY Status: Acute Priority: Medium Current Visit: Yes - Problem List Review Problem List Initiated/Reviewed/Updated: Yes - My Orders Last 24 Hours: My Active Orders 12/31/16 10:38 Up ad Sara [RC] ASDIRECTED Vaginal Exam [RC] Click To Edit Vital Signs [RC] PER UNIT ROUTINE 01/01/17 01:23 May Shower [RC] ASDIRECTED Up ad Sara [RC] ASDIRECTED Vital Signs [RC] PER UNIT ROUTINE Acetaminophen [Tylenol Extra Strength] 1,000 mg PO Q4H PRN Acetaminophen [Tylenol Extra Strength] 500 mg PO Q4H PRN Benzocaine/Menthol [Dermoplast Pain Relief 20%-0.5% [place]] 78 gm TOP ASDIRECTED PRN Bisacodyl [Dulcolax] 10 mg RECTAL .ONCE PRN Docusate Sodium [Colace] 100 mg PO BID PRN Ibuprofen [Motrin] 400 mg PO Q4H PRN Ibuprofen [Motrin] 800 mg PO Q6H PRN Witch Sandrita [Tucks] 1 pad TOP ASDIRECTED PRN oxyCODONE 5 mg PO Q2H PRN Assess Lochia [WOMSER] Per Unit Routine Assess Uterine Involution [WOMSER] Per Unit Routine Peripheral IV Discontinue [OM.PC] Routine Resuscitation Status Routine 01/01/17 01:25 Patient Status [ADT] Routine 01/01/17 12:00 HEMOGLOBIN/HEMATOCRIT,HH [HEME] Timed 01/01/17 Breakfast Regular Diet [DIET] - Assessment Assessment:: of stillborn male at 0100. EBL 100cc, APGARS 0/0 Wt: 4lb 12oz. Mother holding the . - Plan Plan:: IOL due to IUFD A: 26 yo EDC 02/16/2017 33 5/7 wks AB+, [place], History of section 2011 and ectopic. Comes in due to decreased movement. U/S noted no cardiac activity. IUFD P: Admit to L&D, Cytotec x1 then low dose pitocin until active labor then increase pre protocal. AROM prn. Anticipate . Counseling regarding IUFD, plan of care and labor expectations. Delivery: P: Routine pp care. May discharge home in 12 hours
[2017-01-01] MEDS: oxyCODONE 5 MG Tab PO PRN ×3 (01:49→09:55)
[2017-01-01] MEDS ORDERED: Gentamicin 40 MG/ML 2 ML Vial IV SCH (02:15)
[2017-01-01] MEDS: NIFEdipine 30 MG Tab.ER PO SCH (02:15)
[2017-01-01] MEDS ORDERED: Gentamicin 280 MG in Sodium Chloride 0.9% 100 ML IV SCH (02:30)
[2017-01-01] MEDS: Clindamycin Phosphate in D5W 600 MG in Premix Bag 50 BAG IV SCH ×4 (04:50→10:59)
[2017-01-01 07:52] VITALS: BP 131/76
--- NOTE | 2017-01-01 11:13 | PCM.DCSUM1 ---
Discharge Summary - Hospital Course Free Text/Narrative:: Discharge home. Follow up 7-10 days or sooner if needed. - Discharge Data Discharge Date: 01/01/17 Discharge Disposition: Home, Self-Care 01 Condition: Good - Discharge Diagnosis/Problem(s) (1) IUFD at 20 weeks or more of gestation SNOMED Code(s): 623523246, 209211713 ICD Code: O36.4XX0 - MATERNAL CARE FOR INTRAUTERINE , NOT APPLICABLE OR UNSP Status: Acute Priority: High Current Visit: Yes (2) Supervision of normal IUP (intrauterine ) in multigravida SNOMED Code(s): 762132531, 730508197, 412016079 ICD Code: Z34.90 - ENCNTR FOR SUPRVSN OF NORMAL , UNSP, UNSP TRIMESTER Status: Acute Priority: High Current Visit: Yes Qualifiers: Trimester: third trimester Qualified Code(s): Z34.83 - Encounter for supervision of other normal , third trimester (3) (normal spontaneous vaginal delivery) SNOMED Code(s): 67015185 ICD Code: O80 - ENCOUNTER FOR FULL-TERM UNCOMPLICATED DELIVERY Status: Acute Priority: Medium Current Visit: Yes - Patient Instructions Diet: Usual Diet as Tolerated Activity: As Tolerated, Rest and Relax Today Driving: Do Not Drive Showering/Bathing: May Shower Notify Provider of: Fever, Increased Pain, Swelling and Redness, Nausea and/or Vomiting - Discharge Plan Home Medications: Home Meds . [No Known Home Meds] 01/01/15 [History] - General Info Date of Service: 01/01/17 Admission Dx/Problem (Free Text: Patient Status Order with Admit Dx/Problem 12/31/16 10:38 Patient Status [ADT] Routine 12/31/16 11:15 Patient Status [ADT] Routine Admission Diagnosis/Problem Admission Diagnosis/Problem complications 12/31/16 17:02 26 yo EDC 02/16/2017 33 5/7 wks AB+, [place],. Comes in due to decreased movement. U/S noted no cardiac activity. IUFD Functional Status: Reports: pain controlled, tolerating diet, ambulating, urinating - Review of Systems General: Reports: No Symptoms HEENT: Reports: no symptoms Pulmonary: Reports: no symptoms Cardiovascular: Reports: No Symptoms Gastrointestinal: Reports: No symptoms Genitourinary: Reports: no symptoms Musculoskeletal: Reports: no symptoms Skin: Reports: no symptoms Neurological: Reports: No Symptoms Psychiatric: Reports: no symptoms - Patient Data Vitals - Most Recent: Last Vital Signs Temp 37.3 C 01/01/17 01:45 Pulse Resp BP 131/76 01/01/17 05:30 Pulse Ox Weight - Most Recent: 66.95 kg Lab Results - Last 24 hrs: Laboratory Results - last 24 hr 12/31/16 12/31/16 12/31/16 Range/Units 11:00 11:00 11:00 WBC (4.0-11.0) K/uL RBC (4.30-5.90) M/uL Hgb (12.0-16.0) g/dL Hct (36.0-46.0) % MCV (80.0-98.0) fL MCH (27.0-32.0) pg MCHC (31.0-37.0) g/dL RDW Std Deviation (28.0-62.0) fl RDW Coeff of Nyla (11.0-15.0) % Plt Count (150-400) K/uL MPV (7.40-12.00) fL Nucleated RBC % /100WBC Nucleated RBCs # K/uL Sodium (136-146) mmol/L Potassium (3.5-5.1) mmol/L Chloride (98-110) mmol/L Carbon Dioxide (21-31) mmol/L BUN (6.0-23.0) mg/dL Creatinine (0.6-1.5) mg/dL Est Cr Clr Drug Dosing mL/min Estimated GFR (MDRD) ml/min Glucose (60-110) mg/dL Calcium (8.8-10.8) mg/dL Total Bilirubin (0.1-1.5) mg/dL AST (5-40) IU/L ALT (8-54) IU/L Alkaline Phosphatase (40-150) Total Protein (6.0-8.0) g/dL Albumin (3.5-5.0) g/dL Globulin (2.0-3.5) g/dL Albumin/Globulin Ratio (1.3-2.8) Urine Color YELLOW Urine Appearance CLEAR Urine pH 7.0 (5.0-8.0) Ur Specific [place] <= 1.005 (1.001-1.035) Urine Protein NEGATIVE (NEGATIVE) mg/dL Urine Glucose (UA) NEGATIVE (NEGATIVE) mg/dL Urine Ketones NEGATIVE (NEGATIVE) mg/dL Urine Occult Blood NEGATIVE (NEGATIVE) Urine Nitrite NEGATIVE (NEGATIVE) Urine Bilirubin NEGATIVE (NEGATIVE) Urine Urobilinogen 0.2 (<2.0) EU/dL Ur Leukocyte Esterase SMALL (NEGATIVE) Ur Random Creatinine 13.5 mg/dL U Random Total Protein < 6.8 mg/dL Protein/Creatinin Ratio Urine Opiates Screen NEGATIVE (NEGATIVE) Ur Oxycodone Screen NEGATIVE (NEGATIVE) Urine Methadone Screen NEGATIVE (NEGATIVE) Ur Barbiturates Screen NEGATIVE (NEGATIVE) Ur Phencyclidine Scrn NEGATIVE (NEGATIVE) Ur Amphetamine Screen NEGATIVE (NEGATIVE) U Methamphetamines Scrn NEGATIVE (NEGATIVE) U Benzodiazepines Scrn NEGATIVE (NEGATIVE) U Cocaine Metab Screen NEGATIVE (NEGATIVE) U Marijuana (THC) Screen NEGATIVE (NEGATIVE) Blood Type Antibody Screen 12/31/16 12/31/16 12/31/16 Range/Units 11:38 11:38 11:38 WBC 12.01 H (4.0-11.0) K/uL RBC 4.05 L (4.30-5.90) M/uL Hgb 11.3 L (12.0-16.0) g/dL Hct 34.6 L (36.0-46.0) % MCV 85.4 (80.0-98.0) fL MCH 27.9 (27.0-32.0) pg MCHC 32.7 (31.0-37.0) g/dL RDW Std Deviation 39.4 (28.0-62.0) fl RDW Coeff of Nyla 13 (11.0-15.0) % Plt Count 174 (150-400) K/uL MPV 12.30 H (7.40-12.00) fL Nucleated RBC % 0.0 /100WBC Nucleated RBCs # 0 K/uL Sodium 140 (136-146) mmol/L Potassium 3.8 (3.5-5.1) mmol/L Chloride 113 H (98-110) mmol/L Carbon Dioxide 17 L (21-31) mmol/L BUN 4 L (6.0-23.0) mg/dL Creatinine 0.6 (0.6-1.5) mg/dL Est Cr Clr Drug Dosing 114.35 mL/min Estimated GFR (MDRD) > 60.0 ml/min Glucose 66 (60-110) mg/dL Calcium 8.8 (8.8-10.8) mg/dL Total Bilirubin 0.4 (0.1-1.5) mg/dL AST 20 (5-40) IU/L ALT 17 (8-54) IU/L Alkaline Phosphatase 124 (40-150) Total Protein 6.3 (6.0-8.0) g/dL Albumin 3.2 L (3.5-5.0) g/dL Globulin 3.1 (2.0-3.5) g/dL Albumin/Globulin Ratio 1.0 L (1.3-2.8) Urine Color Urine Appearance Urine pH (5.0-8.0) Ur Specific [place] (1.001-1.035) Urine Protein (NEGATIVE) mg/dL Urine Glucose (UA) (NEGATIVE) mg/dL Urine Ketones (NEGATIVE) mg/dL Urine Occult Blood (NEGATIVE) Urine Nitrite (NEGATIVE) Urine Bilirubin (NEGATIVE) Urine Urobilinogen (<2.0) EU/dL Ur Leukocyte Esterase (NEGATIVE) Ur Random Creatinine mg/dL U Random Total Protein mg/dL Protein/Creatinin Ratio Urine Opiates Screen (NEGATIVE) Ur Oxycodone Screen (NEGATIVE) Urine Methadone Screen (NEGATIVE) Ur Barbiturates Screen (NEGATIVE) Ur Phencyclidine Scrn (NEGATIVE) Ur Amphetamine Screen (NEGATIVE) U Methamphetamines Scrn (NEGATIVE) U Benzodiazepines Scrn (NEGATIVE) U Cocaine Metab Screen (NEGATIVE) U Marijuana (THC) Screen (NEGATIVE) Blood Type AB POSITIVE Antibody Screen NEGATIVE Med Orders - Current: Current Medications Acetaminophen (Tylenol Extra Strength) 500 mg PO Q4H PRN PRN Reason: Pain Acetaminophen (Tylenol Extra Strength) 1,000 mg PO Q4H PRN PRN Reason: Pain Last Admin: 01/01/17 04:41 Dose: 1,000 mg Benzocaine/Menthol (Dermoplast Pain Relief 20%-0.5% [place]) 78 gm TOP ASDIRECTED PRN PRN Reason: Perineal Comfort Measure Bisacodyl (Dulcolax) 10 mg RECTAL .ONCE PRN PRN Reason: Constipation Docusate Sodium (Colace) 100 mg PO BID PRN PRN Reason: Constipation Clindamycin Phosphate 600 mg/ (Premix) 50 mls @ 100 mls/hr IV Q6H PLACIDO Last Admin: 01/01/17 10:59 Dose: 100 mls/hr Gentamicin Sulfate 280 mg/ (Sodium Chloride) 107 mls @ 214 mls/hr IV Q24H PLACIDO Last Admin: 01/01/17 05:30 Dose: 214 mls/hr Ibuprofen (Motrin) 400 mg PO Q4H PRN PRN Reason: Pain Ibuprofen (Motrin) 800 mg PO Q6H PRN PRN Reason: Pain Last Admin: 01/01/17 09:54 Dose: 800 mg Oxycodone HCl (Oxycodone) 5 mg PO Q2H PRN PRN Reason: Pain Last Admin: 01/01/17 09:55 Dose: 5 mg Witch Sandrita (Tucks) 1 pad TOP ASDIRECTED PRN PRN Reason: comfort care Discontinued Medications Carboprost Tromethamine (Hemabate Ds) 250 mcg IM ASDIRECTED PRN PRN Reason: Post Hemorrhage Fentanyl (Sublimaze) Confirm Administered Dose 100 mcg .ROUTE .STK-MED ONE Stop: 12/31/16 20:01 Last Admin: 12/31/16 20:40 Dose: Not Given Hydralazine HCl (Apresoline) 5 mg IVPUSH ONETIME ONE Stop: 12/31/16 16:16 Last Admin: 12/31/16 16:16 Dose: 5 mg Hydralazine HCl (Apresoline) 5 mg IVPUSH ONETIME ONE Stop: 12/31/16 17:11 Last Admin: 12/31/16 17:44 Dose: 5 mg Lactated Ringer's (Ringers, Lactated) 1,000 mls @ 150 mls/hr IV ASDIRECTED PLACIDO Last Admin: 12/31/16 20:05 Dose: 150 mls/hr Oxytocin/Lactated Ringer's (Pitocin In Lr 30 Units/500 Ml) 30 unit in 500 mls @ 500 mls/hr IV TITRATE PLACIDO; 500 MUNITS/MIN PRN Reason: Protocol Stop: 12/31/16 12:14 Last Admin: 01/01/17 02:15 Dose: Not Given Oxytocin/Lactated Ringer's (Pitocin In Lr 30 Units/500 Ml) 30 unit in 500 mls @ 2 mls/hr IV TITRATE PLACIDO; 2 MUNITS/MIN PRN Reason: Protocol Last Admin: 12/31/16 17:50 Dose: 2 munits/min, 2 mls/hr Ropivacaine (Naropin 0.2%) Confirm Administered Dose 100 mls @ as directed .ROUTE .[employer] ONE Stop: 12/31/16 20:01 Last Admin: 12/31/16 20:40 Dose: Not Given Lidocaine HCl (Xylocaine 1%) 50 ml INJECT .ONCE PRN PRN Reason: Laceration repair Meperidine HCl (Demerol) 50 mg IVPUSH Q4H PRN PRN Reason: Pain Last Admin: 12/31/16 14:52 Dose: 50 mg Meperidine HCl (Demerol) 50 mg IVPUSH Q1H PRN PRN Reason: Pain Last Admin: 12/31/16 17:38 Dose: 50 mg Methylergonovine Maleate (Methergine) 0.2 mg IM ASDIRECTED PRN PRN Reason: Post Hemorrhage Midazolam HCl (Versed 1 Mg/Ml) Confirm Administered Dose 2 mg .ROUTE .[facility] ONE Stop: 12/31/16 20:06 Misoprostol (Cytotec) 200 mcg PO .ONCE PRN PRN Reason: Post Hemorrhage Misoprostol (Cytotec) 25 mcg VAG .ONCE PLACIDO Last Admin: 12/31/16 12:25 Dose: 25 mcg Misoprostol (Cytotec) 25 mcg PO .ONCE PLACIDO Last Admin: 12/31/16 12:25 Dose: 25 mcg Nalbuphine HCl (Nubain) 10 mg IVPUSH Q1H PRN PRN Reason: Pain (severe 7-10) Stop: 12/31/16 13:09 Last Admin: 12/31/16 12:24 Dose: 10 mg Nalbuphine HCl (Nubain) 10 mg IVPUSH Q1H PRN PRN Reason: Pain (severe 7-10) Last Admin: 12/31/16 14:00 Dose: 10 mg Nifedipine (Procardia Xl) 30 mg PO BID PLACIDO Last Admin: 01/01/17 02:15 Dose: Not Given Ondansetron HCl (Zofran) 4 - 8 mg IVPUSH Q4H PRN PRN Reason: Nausea/Vomiting Ondansetron HCl (Zofran) 4 mg IVPUSH Q4H PRN PRN Reason: Nausea/Vomiting Sodium Chloride (Saline Flush) 10 ml FLUSH ASDIRECTED PRN PRN Reason: Keep Vein Open Sodium Chloride (Saline Flush) 2.5 ml FLUSH ASDIRECTED PRN PRN Reason: Keep Vein Open Sterile Water (Sterile Water For Irrigation) 1,000 ml IRR ASDIRECTED PRN PRN Reason: delivery Terbutaline Sulfate (Brethine) 0.25 mg SUBCUT ASDIRECTED PRN PRN Reason: Tacysystole - Exam General: Reports: alert, oriented, cooperative, no acute distress Lungs: Reports: Normal respiratory effort Abdomen: Reports: soft, no tenderness, no distension (Female) Exam: Vaginal bleeding Rectal (Female) Exam: Deferred Back Exam: Reports: full range of motion Extremities: Reports: edema Skin: Reports: warm Wound/Incisions: Reports: healing well Neurological: Reports: no new focal deficit Psy/Mental Status: Reports: alert, normal affect, normal mood *Q Meaningful Use (DIS) - VTE *Q VTE Criteria *Q: - Stroke *Q Stroke Criteria *Q: - AMI *Q AMI Criteria *Q:
== END 2017-01-01 14:00 | disposition home or self-care (01) | DRG 775 ==
LOC: MW.OBCHECK 10:03 → MW.OB 10:04 → MW.OBCHECK 12:59 → MW.OB 23:59 → OBSVTOIN 01-01 01:00 → MW.OB 01-01 05:14
PROVIDERS: ADMIT Obstetrics & Gynecology; ATTEND Obstetrics & Gynecology
PROC: 10E0XZZ Delivery of Products of Conception, External Approach (ICD-10-PCS; principal; 2017-01-01)
PROC: 3E0P7GC Introduction of Other Therapeutic Substance into Female Reproductive, Via Natural or Artificial Opening (ICD-10-PCS; 2017-01-01)
PROC: 10907ZC Drainage of Amniotic Fluid, Therapeutic from Products of Conception, Via Natural or Artificial Opening (ICD-10-PCS; 2017-01-01)
DX: O36.4XX0 Maternal care for intrauterine death, not applicable or unspecified (principal); Z3A.33 33 weeks gestation of pregnancy; Z37.1 Single stillbirth; Z88.0 Allergy status to penicillin
CPT/HCPCS: 01967; 36415; 59025; 76815; 76815-26; 80053; 80305; 81003; 82570; 84156; 85014; 85018; 85027; 86850; 86900; 86901; 88305; A9270-GY; J0360; J1580; J2175; J2250; J2300; J7030; J7120

== ENCOUNTER 2017-09-13 21:00 | Observation (INO) | payer OTHER ==
--- NOTE | 2017-09-13 21:13 | EDM.PDOC ---
ED HPI GENERAL MEDICAL PROBLEM - General Chief Complaint: Back Pain or Injury Stated Complaint: PT HAS BACK PAIN Time Seen by Provider: 09/13/17 21:09 - History of Present Illness INITIAL COMMENTS - FREE TEXT/NARRATIVE: HISTORY AND PHYSICAL: History of present illness: Patient's a 27-year-old female was recently been treated for urinary tract infection is concerned about possible medication reaction she developed a cold sore she's also had a variety of other nonspecific complaints body aches or back discomfort states she's felt feverish although has no fever on arrival here but no vomiting no diarrhea no abdominal pain. Review of systems: As per history of present illness and below otherwise all systems reviewed and negative. Past medical history: As per history of present illness and as reviewed below otherwise noncontributory. Surgical history: As per history of present illness and as reviewed below otherwise noncontributory. Social history: No reported history of drug or alcohol abuse. Family history: As per history of present illness and as reviewed below otherwise noncontributory. Physical exam: HEENT: Atraumatic, normocephalic, pupils reactive, negative for conjunctival pallor or scleral icterus, mucous membranes moist, throat clear, neck supple, nontender, trachea midline. Lungs: Clear to auscultation, breath sounds equal bilaterally, chest nontender. Heart: S1S2, regular, negative for clicks, rubs, or JVD. Abdomen: Soft, nondistended, nontender. Negative for masses or hepatosplenomegaly. Negative for costovertebral tenderness. Pelvis: Stable nontender. Genitourinary: Deferred. Rectal: Deferred. Extremities: Atraumatic, negative for cords or calf pain. Neurovascular unremarkable. Neuro: Awake, alert, oriented. Cranial nerves II through XII unremarkable. Cerebellum unremarkable. Motor and sensory unremarkable throughout. Exam nonfocal. Diagnostics: CBC CMP UA hCG urine culture influenza Therapeutics: None Impression: #1 history of UTI #2 medical screening exam Definitive disposition and diagnosis as appropriate pending reevaluation and review of above. - Related Data Allergies Allergy/AdvReac Type Severity Reaction Status Date / Time Latex, Natural Rubber Allergy Itching Verified 09/13/17 21:16 Penicillins Allergy Cannot Verified 09/13/17 21:16 Remember pineapple Allergy Anaphylactic Verified 09/13/17 21:16 Shock Home Meds: Home Meds Nitrofurantoin Macrocrystal [Macrodantin] 100 mg PO BID 09/13/17 [History] Past Medical History Genitourinary History: Reports: Other (See Below) Other Genitourinary History: etopic pregancy [employer] History: Reports: Ectopic Neurological History: Reports: Migraines Psychiatric History: Reports: Anxiety, Bipolar, Depression - Past Surgical History HEENT Surgical History: Reports: Oral Surgery Female Surgical History: Reports: Section, Other (See Below) Social & Family History - Family History Family Medical History: Noncontributory - Tobacco Use Smoking Status *Q: Current Every Day Smoker Years of Tobacco use: 5 Packs/Tins Daily: 0.8 - Alcohol Use Days Per Week of Alcohol Use: 2 Number of Drinks Per Day: 12 Total Drinks Per Week: 24 - Recreational Drug Use Recreational Drug Use: Yes Drug Use in Last 12 Months: Yes Recreational Drug Type: Reports: Marijuana/Hashish ED ROS GENERAL - Review of Systems Review Of Systems: ROS reveals no pertinent complaints other than HPI. ED EXAM, GENERAL - Physical Exam Exam: See Below (See dictation) Course - Vital Signs Last Recorded V/S: Last Vital Signs Temp 38.3 C H 09/13/17 21:00 Pulse 101 H 09/13/17 21:00 Resp 20 09/13/17 21:00 BP 121/70 09/13/17 21:00 Pulse Ox 99 09/13/17 21:00 - Orders/Labs/Meds Orders: Active Orders 24 hr Category Date Time Status Chest 1V Frontal [CR] Stat Exams 09/13/17 21:11 Taken Levofloxacin/Dextrose 5%-Water [Levaquin in D5W 750 MG/ Med 09/13/17 22:03 Active 150 ML] 750 mg Premix Bag 1 bag IV ONETIME Sodium Chloride 0.9% [Normal Saline] 1,000 ml Med 09/13/17 22:01 Active IV .BOLUS Medication Orders Levofloxacin/Dextrose 750 mg/ (Premix) 150 mls @ 100 mls/hr IV ONETIME ONE Stop: 09/13/17 23:32 Last Admin: 09/13/17 22:16 Dose: 100 mls/hr Sodium Chloride (Normal Saline) 1,000 mls @ 999 mls/hr IV .BOLUS ONE Stop: 09/13/17 23:01 Last Admin: 09/13/17 22:14 Dose: 999 mls/hr Labs: Laboratory Tests 09/13/17 09/13/17 09/13/17 Range/Units 21:15 21:23 21:23 WBC 14.50 H (4.0-11.0) K/uL RBC 4.49 (4.30-5.90) M/uL Hgb 12.7 (12.0-16.0) g/dL Hct 37.6 (36.0-46.0) % MCV 83.7 (80.0-98.0) fL MCH 28.3 (27.0-32.0) pg MCHC 33.8 (31.0-37.0) g/dL RDW Std Deviation 40.2 (28.0-62.0) fl RDW Coeff of Nyla 13 (11.0-15.0) % Plt Count 243 (150-400) K/uL MPV 11.00 (7.40-12.00) fL Neut % (Auto) 70.0 (48.0-80.0) % Lymph % (Auto) 16.1 (16.0-40.0) % [place] % (Auto) 13.5 (0.0-15.0) % Eos % (Auto) 0.1 (0.0-7.0) % Baso % (Auto) 0.3 (0.0-1.5) % Neut # (Auto) 10.2 H (1.4-5.7) K/uL Lymph # (Auto) 2.3 (0.6-2.4) K/uL [place] # (Auto) 2.0 H (0.0-0.8) K/uL Eos # (Auto) 0.0 (0.0-0.7) K/uL Baso # (Auto) 0.0 (0.0-0.1) K/uL Nucleated RBC % 0.0 /100WBC Nucleated RBCs # 0 K/uL Sodium 134 L (136-146) mmol/L Potassium 3.5 (3.5-5.1) mmol/L Chloride 106 (98-110) mmol/L Carbon Dioxide 15 L (21-31) mmol/L BUN 8 (6.0-23.0) mg/dL Creatinine 0.9 (0.6-1.5) mg/dL Est Cr Clr Drug Dosing TNP Estimated GFR (MDRD) > 60.0 ml/min Glucose 92 (60-110) mg/dL Calcium 9.2 (8.8-10.8) mg/dL Total Bilirubin 1.1 (0.1-1.5) mg/dL AST 26 (5-40) IU/L ALT 34 (8-54) IU/L Alkaline Phosphatase 100 (40-150) Total Protein 7.9 (6.0-8.0) g/dL Albumin 4.2 (3.5-5.0) g/dL Globulin 3.7 H (2.0-3.5) g/dL Albumin/Globulin Ratio 1.1 L (1.3-2.8) HCG, Qual (NEG) Urine Color YELLOW Urine Appearance HAZY Urine pH 6.0 (5.0-8.0) Ur Specific [place] 1.015 (1.001-1.035) Urine Protein TRACE (NEGATIVE) mg/dL Urine Glucose (UA) NEGATIVE (NEGATIVE) mg/dL Urine Ketones >=80 (NEGATIVE) mg/dL Urine Occult Blood LARGE H (NEGATIVE) Urine Nitrite NEGATIVE (NEGATIVE) Urine Bilirubin NEGATIVE (NEGATIVE) Urine Urobilinogen 0.2 (<2.0) EU/dL Ur Leukocyte Esterase SMALL (NEGATIVE) Urine RBC 4-6 (0-2/HPF) Urine WBC 18-20 (0-5/HPF) Ur Epithelial Cells FEW (NONE-FEW) Urine Bacteria FEW (NEGATIVE) 09/13/17 Range/Units 21:23 WBC (4.0-11.0) K/uL RBC (4.30-5.90) M/uL Hgb (12.0-16.0) g/dL Hct (36.0-46.0) % MCV (80.0-98.0) fL MCH (27.0-32.0) pg MCHC (31.0-37.0) g/dL RDW Std Deviation (28.0-62.0) fl RDW Coeff of Nyla (11.0-15.0) % Plt Count (150-400) K/uL MPV (7.40-12.00) fL Neut % (Auto) (48.0-80.0) % Lymph % (Auto) (16.0-40.0) % [place] % (Auto) (0.0-15.0) % Eos % (Auto) (0.0-7.0) % Baso % (Auto) (0.0-1.5) % Neut # (Auto) (1.4-5.7) K/uL Lymph # (Auto) (0.6-2.4) K/uL [place] # (Auto) (0.0-0.8) K/uL Eos # (Auto) (0.0-0.7) K/uL Baso # (Auto) (0.0-0.1) K/uL Nucleated RBC % /100WBC Nucleated RBCs # K/uL Sodium (136-146) mmol/L Potassium (3.5-5.1) mmol/L Chloride (98-110) mmol/L Carbon Dioxide (21-31) mmol/L BUN (6.0-23.0) mg/dL Creatinine (0.6-1.5) mg/dL Est Cr Clr Drug Dosing Estimated GFR (MDRD) ml/min Glucose (60-110) mg/dL Calcium (8.8-10.8) mg/dL Total Bilirubin (0.1-1.5) mg/dL AST (5-40) IU/L ALT (8-54) IU/L Alkaline Phosphatase (40-150) Total Protein (6.0-8.0) g/dL Albumin (3.5-5.0) g/dL Globulin (2.0-3.5) g/dL Albumin/Globulin Ratio (1.3-2.8) HCG, Qual NEGATIVE (NEG) Urine Color Urine Appearance Urine pH (5.0-8.0) Ur Specific [place] (1.001-1.035) Urine Protein (NEGATIVE) mg/dL Urine Glucose (UA) (NEGATIVE) mg/dL Urine Ketones (NEGATIVE) mg/dL Urine Occult Blood (NEGATIVE) Urine Nitrite (NEGATIVE) Urine Bilirubin (NEGATIVE) Urine Urobilinogen (<2.0) EU/dL Ur Leukocyte Esterase (NEGATIVE) Urine RBC (0-2/HPF) Urine WBC (0-5/HPF) Ur Epithelial Cells (NONE-FEW) Urine Bacteria (NEGATIVE) Meds: Medications Generic Name Dose Route Start Last Admin Trade Name Freq PRN Reason Stop Dose Admin Levofloxacin/Dextrose 750 mg/ 150 mls @ 100 mls/hr 09/13/17 22:03 09/13/17 22 :16 Premix IV 09/13/17 23:32 100 mls/hr ONETIME ONE Administration Sodium Chloride 1,000 mls @ 999 mls/hr 09/13/17 22:01 09/13/17 22:14 Normal Saline IV 09/13/17 23:01 999 mls/hr .BOLUS ONE Administration Departure - Departure Time of Disposition: 22:41 Disposition: Admitted As Inpatient 68 Condition: Good Clinical Impression: Pyelonephritis - Discharge Information Referrals: PCP,None [Primary Care Provider] - Forms: ED Department Discharge - My Orders Last 24 Hours: My Active Orders 09/13/17 21:11 Chest 1V Frontal [CR] Stat 09/13/17 22:01 Sodium Chloride 0.9% [Normal Saline] 1,000 ml IV .BOLUS 09/13/17 22:03 Levofloxacin/Dextrose 5%-Water [Levaquin in D5W 750 MG/150 ML] 750 mg Premix Bag 1 bag IV ONETIME - Assessment/Plan Last 24 Hours: My Active Orders 09/13/17 21:11 Chest 1V Frontal [CR] Stat 09/13/17 22:01 Sodium Chloride 0.9% [Normal Saline] 1,000 ml IV .BOLUS 09/13/17 22:03 Levofloxacin/Dextrose 5%-Water [Levaquin in D5W 750 MG/150 ML] 750 mg Premix Bag 1 bag IV ONETIME
[2017-09-13 21:58] LABS: CHLORIDE,CL 106 mmol/L (98-110); SODIUM,NA 134 mmol/L (136-146)
[2017-09-13] MEDS ORDERED: Sodium Chloride 0.9% 1,000 ML IV ONE (22:01)
[2017-09-13] MEDS ORDERED: Levofloxacin/Dextrose 5%-Water 750 MG in Premix Bag 1 BAG IV ONE (22:03)
--- NOTE | 2017-09-13 23:01 | PCM.HP ---
H&P History of Present Illness - General Date of Service: 09/13/17 Admit Problem/Dx: Admission Diagnosis/Problem Admission Diagnosis/Problem Pyelonephritis Source of Information: Patient History Limitations: Reports: No Limitations - History of Present Illness Initial Comments - Free Text/Narative: 27-year-old female presenting to the ER with chief complaint of back pain and nausea 2 days. Patient states that for the past 2 days she has had increasing back pain and some associated nausea. Back pain is bilaterally under both ribs. It is 8 out of 10 constant and stabbing. Patient states that 2 days ago she called her PCP, Rose Flores NP, who was out of the office but Kalpana Conley was able to send a prescription for nitrofurantoin to the pharmacy which she picked up. As per patient she did take the medication but back pain only increased and she also had development of a vesicular rash under her lower lip. Secondary to this she came to the emergency department with complaints of the back pain as well as worried that she was having a medication allergic reaction causing the rash. She does report feeling feverish but no reported fevers as well as nausea but no vomiting, diarrhea, or abdominal pain. Patient currently denies any chest pain, palpitations, shortness breath, syncopal episodes, or focal neurologic deficits. She takes no other medications and is otherwise of generally healthy. She is allergic to penicillin, latex, and pineapple. In emergency department she was found to have leukocytosis of 14.5 K, hyponatremia 134, and positive urine for UTI. Influenza was negative as well as chest x-ray was unremarkable. Secondary to symptoms and leukocytosis patient was admitted for suspected pyelonephritis. She was given acetaminophen 1000 mg 1, Levaquin 750 mg IV 1 Toradol 30 mg 1 in the emergency department. low back Pain Score (Numeric/FACES): 10 - Related Data Allergies/Adverse Reactions: Allergies Allergy/AdvReac Type Severity Reaction Status Date / Time Latex, Natural Rubber Allergy Itching Verified 09/13/17 21:16 Penicillins Allergy Cannot Verified 09/13/17 21:16 Remember pineapple Allergy Anaphylactic Verified 09/13/17 21:16 Shock Home Medications: Home Meds Nitrofurantoin Macrocrystal [Macrodantin] 100 mg PO BID 09/13/17 [History] Past Medical History - Past Health History Medical/Surgical History: Denies Medical/Surgical History Genitourinary History: Reports: Other (See Below) Other Genitourinary History: etopic pregancy [employer] History: Reports: Ectopic Neurological History: Reports: Migraines Psychiatric History: Reports: Anxiety, Bipolar, Depression - Past Surgical History HEENT Surgical History: Reports: Oral Surgery Female Surgical History: Reports: Section, Other (See Below) Social & Family History - Family History Family Medical History: Noncontributory - Tobacco Use Smoking Status *Q: Current Every Day Smoker Years of Tobacco use: 5 Packs/Tins Daily: 0.8 Used Tobacco, but Quit: Yes Month Tobacco Last Used: 1 - Alcohol Use Days Per Week of Alcohol Use: 2 Number of Drinks Per Day: 12 Total Drinks Per Week: 24 - Recreational Drug Use Recreational Drug Use: Yes Drug Use in Last 12 Months: Yes Recreational Drug Type: Reports: Marijuana/Hashish H&P Review of Systems - Review of Systems: Review Of Systems: See Below General: Reports: Fever, Chills. Denies: Weakness, Fatigue, Diaphoresis HEENT: Denies: Headaches, Sore Throat Pulmonary: Reports: Cough. Denies: Shortness of Breath, Wheezing, Pleuritic Chest Pain, Sputum Cardiovascular: Denies: Chest Pain, Palpitations, Edema Gastrointestinal: Reports: Nausea. Denies: Abdominal Pain, Black Stool, Bloody Stool, Diarrhea, Vomiting Genitourinary: Reports: Hematuria, Flank Pain. Denies: Dysuria Musculoskeletal: Denies: Neck Pain, Leg Pain Skin: Denies: Cyanosis Psychiatric: Denies: Confusion Neurological: Denies: Confusion, Dizziness, Headache Hematologic/Lymphatic: Denies: Anemia Exam - Exam Exam: See Below - Vital Signs Vital Signs: Last Vital Signs Temp 101 F H 09/13/17 21:00 Pulse 101 H 09/13/17 21:00 Resp 20 09/13/17 21:00 BP 121/70 09/13/17 21:00 Pulse Ox 99 09/13/17 21:00 Weight: 67.132 kg - Exam General: Alert, Oriented, Cooperative HEENT: Conjunctiva Clear, EACs Clear, EOMI, Hearing Intact, Mucosa Moist & [place] , Nares Patent, Normal Nasal Septum, Posterior Pharynx Clear, PERRLA Neck: Supple, Trachea Midline, 2 Lungs: Clear to Auscultation, Normal Respiratory Effort Cardiovascular: Regular Rate, Regular Rhythm, Normal S1, Normal S2 GI/Abdominal Exam: Normal Bowel Sounds, Soft, Non-Tender, No Organomegaly, No Distention Back Exam: Normal Inspection, CVA Tenderness (L), CVA Tenderness (R) Extremities: Normal Inspection, Non-Tender, No Pedal Edema, Normal Capillary Refill Peripheral Pulses: 2+: Radial (L), Radial (R), Posterior Tibial (L), Posterior Tibial (R), Dorsalis Pedis (L), Dorsalis Pedis (R) Skin: Warm, Dry, Intact Neurological: Cranial Nerves Intact Neuro Extensive - Mental Status: Alert, Oriented x3, Normal Mood/Affect, Normal Cognition Neuro Extensive - Motor, Sensory, Reflexes: CN II-XII Intact Psychiatric: Alert, Normal Affect, Normal Mood - Patient Data Lab Results Last 24 hrs: Laboratory Results - last 24 hr 09/13/17 09/13/17 09/13/17 Range/Units 21:15 21:23 21:23 WBC 14.50 H (4.0-11.0) K/uL RBC 4.49 (4.30-5.90) M/uL Hgb 12.7 (12.0-16.0) g/dL Hct 37.6 (36.0-46.0) % MCV 83.7 (80.0-98.0) fL MCH 28.3 (27.0-32.0) pg MCHC 33.8 (31.0-37.0) g/dL RDW Std Deviation 40.2 (28.0-62.0) fl RDW Coeff of Nyla 13 (11.0-15.0) % Plt Count 243 (150-400) K/uL MPV 11.00 (7.40-12.00) fL Neut % (Auto) 70.0 (48.0-80.0) % Lymph % (Auto) 16.1 (16.0-40.0) % [place] % (Auto) 13.5 (0.0-15.0) % Eos % (Auto) 0.1 (0.0-7.0) % Baso % (Auto) 0.3 (0.0-1.5) % Neut # (Auto) 10.2 H (1.4-5.7) K/uL Lymph # (Auto) 2.3 (0.6-2.4) K/uL [place] # (Auto) 2.0 H (0.0-0.8) K/uL Eos # (Auto) 0.0 (0.0-0.7) K/uL Baso # (Auto) 0.0 (0.0-0.1) K/uL Nucleated RBC % 0.0 /100WBC Nucleated RBCs # 0 K/uL Sodium 134 L (136-146) mmol/L Potassium 3.5 (3.5-5.1) mmol/L Chloride 106 (98-110) mmol/L Carbon Dioxide 15 L (21-31) mmol/L BUN 8 (6.0-23.0) mg/dL Creatinine 0.9 (0.6-1.5) mg/dL Est Cr Clr Drug Dosing TNP Estimated GFR (MDRD) > 60.0 ml/min Glucose 92 (60-110) mg/dL Calcium 9.2 (8.8-10.8) mg/dL Total Bilirubin 1.1 (0.1-1.5) mg/dL AST 26 (5-40) IU/L ALT 34 (8-54) IU/L Alkaline Phosphatase 100 (40-150) Total Protein 7.9 (6.0-8.0) g/dL Albumin 4.2 (3.5-5.0) g/dL Globulin 3.7 H (2.0-3.5) g/dL Albumin/Globulin Ratio 1.1 L (1.3-2.8) HCG, Qual (NEG) Urine Color YELLOW Urine Appearance HAZY Urine pH 6.0 (5.0-8.0) Ur Specific [place] 1.015 (1.001-1.035) Urine Protein TRACE (NEGATIVE) mg/dL Urine Glucose (UA) NEGATIVE (NEGATIVE) mg/dL Urine Ketones >=80 (NEGATIVE) mg/dL Urine Occult Blood LARGE H (NEGATIVE) Urine Nitrite NEGATIVE (NEGATIVE) Urine Bilirubin NEGATIVE (NEGATIVE) Urine Urobilinogen 0.2 (<2.0) EU/dL Ur Leukocyte Esterase SMALL (NEGATIVE) Urine RBC 4-6 (0-2/HPF) Urine WBC 18-20 (0-5/HPF) Ur Epithelial Cells FEW (NONE-FEW) Urine Bacteria FEW (NEGATIVE) 01/16/18 Range/Units 21:23 WBC (4.0-11.0) K/uL RBC (4.30-5.90) M/uL Hgb (12.0-16.0) g/dL Hct (36.0-46.0) % MCV (80.0-98.0) fL MCH (27.0-32.0) pg MCHC (31.0-37.0) g/dL RDW Std Deviation (28.0-62.0) fl RDW Coeff of Nyla (11.0-15.0) % Plt Count (150-400) K/uL MPV (7.40-12.00) fL Neut % (Auto) (48.0-80.0) % Lymph % (Auto) (16.0-40.0) % [place] % (Auto) (0.0-15.0) % Eos % (Auto) (0.0-7.0) % Baso % (Auto) (0.0-1.5) % Neut # (Auto) (1.4-5.7) K/uL Lymph # (Auto) (0.6-2.4) K/uL [place] # (Auto) (0.0-0.8) K/uL Eos # (Auto) (0.0-0.7) K/uL Baso # (Auto) (0.0-0.1) K/uL Nucleated RBC % /100WBC Nucleated RBCs # K/uL Sodium (136-146) mmol/L Potassium (3.5-5.1) mmol/L Chloride (98-110) mmol/L Carbon Dioxide (21-31) mmol/L BUN (6.0-23.0) mg/dL Creatinine (0.6-1.5) mg/dL Est Cr Clr Drug Dosing Estimated GFR (MDRD) ml/min Glucose (60-110) mg/dL Calcium (8.8-10.8) mg/dL Total Bilirubin (0.1-1.5) mg/dL AST (5-40) IU/L ALT (8-54) IU/L Alkaline Phosphatase (40-150) Total Protein (6.0-8.0) g/dL Albumin (3.5-5.0) g/dL Globulin (2.0-3.5) g/dL Albumin/Globulin Ratio (1.3-2.8) HCG, Qual NEGATIVE (NEG) Urine Color Urine Appearance Urine pH (5.0-8.0) Ur Specific [place] (1.001-1.035) Urine Protein (NEGATIVE) mg/dL Urine Glucose (UA) (NEGATIVE) mg/dL Urine Ketones (NEGATIVE) mg/dL Urine Occult Blood (NEGATIVE) Urine Nitrite (NEGATIVE) Urine Bilirubin (NEGATIVE) Urine Urobilinogen (<2.0) EU/dL Ur Leukocyte Esterase (NEGATIVE) Urine RBC (0-2/HPF) Urine WBC (0-5/HPF) Ur Epithelial Cells (NONE-FEW) Urine Bacteria (NEGATIVE) Result Diagrams: 09/13/17 21:23 09/13/17 21:23 Adrian Results Last 24 hrs: Microbiology 09/13/17 20:10 Influenza Type A Antigen Screen - Final Nasopharyngeal Swab - Nare, Left NEGATIVE INFLUENZA A VIRUS AG Influenza Type B Antigen Screen - Final NEGATIVE INFLUENZA B VIRUS AG *Q Meaningful Use (ADM) - VTE *Q VTE Criteria *Q: - Stroke *Q Stroke Criteria *Q: - AMI *Q AMI Criteria *Q: - Problem List (1) Herpes gingivostomatitis SNOMED Code(s): 95650135 ICD Code: B00.2 - HERPESVIRAL GINGIVOSTOMATITIS AND PHARYNGOTONSILLITIS Status: Acute Priority: Medium Current Visit: Yes (2) Leukocytosis SNOMED Code(s): 671923302 ICD Code: D72.829 - ELEVATED WHITE BLOOD CELL COUNT, UNSPECIFIED Status: Acute Priority: High Current Visit: Yes Qualifiers: Leukocytosis type: unspecified Qualified Code(s): D72.829 - Elevated white blood cell count, unspecified (3) Pyelonephritis SNOMED Code(s): 36039711 ICD Code: N12 - TUBULO-INTERSTITIAL NEPHRITIS, NOT SPCF ACUTE OR CHRONIC Status: Suspected Priority: High Current Visit: Yes Problem List Initiated/Reviewed/Updated: Yes Orders Last 24hrs: Active Orders 24 hr Category Date Time Status Patient Status [ADT] Stat ADT 09/13/17 22:41 Active Chest 1V Frontal [CR] Stat Exams 09/13/17 21:11 Taken Levofloxacin/Dextrose 5%-Water [Levaquin in D5W 750 MG/ Med 09/13/17 22:03 Active 150 ML] 750 mg Premix Bag 1 bag IV ONETIME Sodium Chloride 0.9% [Normal Saline] 1,000 ml Med 09/13/17 22:01 Active IV .BOLUS Medication Orders Levofloxacin/Dextrose 750 mg/ (Premix) 150 mls @ 100 mls/hr IV ONETIME ONE Stop: 09/13/17 23:32 Last Admin: 09/13/17 22:16 Dose: 100 mls/hr Sodium Chloride (Normal Saline) 1,000 mls @ 999 mls/hr IV .BOLUS ONE Stop: 09/13/17 23:01 Last Admin: 09/13/17 22:14 Dose: 999 mls/hr Assessment/Plan Comment:: 27-year-old female admitted 09/13/17 for suspected pyelonephritis with no significant past medical history. Suspected pyelonephritis: Positive urinary tract infection with bilateral flank pain suspicious for pyelonephritis. Was given Levaquin in the emergency department which we will continue while inpatient. We will transition oral once leukocytosis has somewhat resolved. We will get a bilateral renal ultrasound tomorrow a.m. Will continue IV fluid hydration with normal saline 125 for her hyponatremia which is most likely secondary to volume depletion. Gingivostomatitis: Recurrent reaction will treat with valacyclovir 2000 mg by mouth twice a day 1 day. VTE: SCD, Lovenox Dispo: 1-2 days
[2017-09-13] MEDS ORDERED: Ketorolac 30 MG/ML SDV IVPUSH ONE (23:07)
[2017-09-13] MEDS ORDERED: Acetaminophen 500 MG Tab PO ONE (23:07)
[2017-09-14] MEDS ORDERED: Ondansetron 4 MG Tab.DIS PO PRN (00:10)
[2017-09-14] MEDS ORDERED: Morphine 10 MG/ML Syringe IVPUSH PRN (00:10)
[2017-09-14] MEDS ORDERED: Temazepam 15 MG Cap PO PRN (00:10)
[2017-09-14] MEDS ORDERED: Ondansetron 4 MG/2 ML SDV IVPUSH PRN (00:10)
[2017-09-14] MEDS ORDERED: Ibuprofen 800 MG Tab PO PRN (00:10)
[2017-09-14] MEDS ORDERED: Enoxaparin 40 MG/0.4 ML Syringe SUBCUT SCH ×2 (00:15→23:00)
[2017-09-14] MEDS: Sodium Chloride 0.9% 1,000 ML IV SCH ×3 (00:37→16:44)
[2017-09-14] MEDS: valACYclovir 500 MG Tab PO SCH ×3 (00:43→21:07)
[2017-09-14] MEDS: Morphine 2 MG/ML Syringe IVPUSH PRN ×6 (03:36→21:06)
[2017-09-14 05:39] LABS: CHLORIDE,CL 112 mmol/L (98-110); SODIUM,NA 138 mmol/L (136-146)
--- NOTE | 2017-09-14 11:08 | US ---
EXAMINATION: Renal ultrasound HISTORY: Pyelonephritis COMPARISON: None TECHNIQUE: Grayscale and color Doppler images obtained of the kidneys. FINDINGS: The right kidney measures at least 12.8 cm and the left kidney measures at least 11.3 cm po le-to-pole without evidence of hydronephrosis. Renal cortical echotexture is normal. Normal color Dop pler flow bilaterally. Tiny cyst within the upper pole of the right kidney. A small echogenic area wi thin the upper pole of the left kidney which does not shadow. This may represent a focal area of fat within the hilum versus a small stone. The bladder was empty. IMPRESSION: 1. No evidence of hydronephrosis bilaterally. 2. Possible small 6 mm stone within the upper pole of the left kidney.
--- NOTE | 2017-09-14 11:24 | PCM.PN ---
- General Info Date of Service: 09/14/17 Admission Dx/Problem (Free Text): Admission Diagnosis/Problem 27-year-old female with known extensive past medical history that on our service for bilateral flank pain. Ultrasound indicates a possible 6 mm stone in the left upper pole of the kidney with no signs of hydronephrosis. Seen in the bedside today, patient continues to claim and bilateral flank pain. She denies any fevers chills nausea or vomiting. Denies any abdominal pain. Denies any difficulty urinating. - Review of Systems General: Reports: Other (See history of present illness) - Patient Data Vitals - Most Recent: Last Vital Signs Temp 36.7 C 09/14/17 08:00 Pulse 82 09/14/17 08:00 Resp 16 09/14/17 08:00 BP 114/70 09/14/17 08:00 Pulse Ox 100 09/14/17 08:00 Weight - Most Recent: 67.132 kg I&O - Last 24 Hours: Intake & Output 09/13/17 09/14/17 09/14/17 22:59 06:59 14:59 Intake Total 200 Output Total 500 Balance -300 Lab Results Last 24 Hours: Laboratory Results - last 24 hr 09/14/17 09/14/17 Range/Units 05:15 05:15 WBC 13.39 H (4.0-11.0) K/uL RBC 4.19 L (4.30-5.90) M/uL Hgb 11.9 L (12.0-16.0) g/dL Hct 35.4 L (36.0-46.0) % MCV 84.5 (80.0-98.0) fL MCH 28.4 (27.0-32.0) pg MCHC 33.6 (31.0-37.0) g/dL RDW Std Deviation 40.1 (28.0-62.0) fl RDW Coeff of Nyla 13 (11.0-15.0) % Plt Count 219 (150-400) K/uL MPV 11.10 (7.40-12.00) fL Neut % (Auto) 61.3 (48.0-80.0) % Lymph % (Auto) 23.6 (16.0-40.0) % [place] % (Auto) 14.7 (0.0-15.0) % Eos % (Auto) 0.1 (0.0-7.0) % Baso % (Auto) 0.3 (0.0-1.5) % Neut # (Auto) 8.2 H (1.4-5.7) K/uL Lymph # (Auto) 3.2 H (0.6-2.4) K/uL [place] # (Auto) 2.0 H (0.0-0.8) K/uL Eos # (Auto) 0.0 (0.0-0.7) K/uL Baso # (Auto) 0.0 (0.0-0.1) K/uL Nucleated RBC % 0.0 /100WBC Nucleated RBCs # 0 K/uL Sodium 138 (136-146) mmol/L Potassium 4.2 (3.5-5.1) mmol/L Chloride 112 H (98-110) mmol/L Carbon Dioxide 17 L (21-31) mmol/L BUN 8 (6.0-23.0) mg/dL Creatinine 0.8 (0.6-1.5) mg/dL Est Cr Clr Drug Dosing 85.02 mL/min Estimated GFR (MDRD) > 60.0 ml/min Glucose 91 (60-110) mg/dL Calcium 7.9 L (8.8-10.8) mg/dL Med Orders - Current: Current Medications Acetaminophen (Tylenol) 650 mg PO Q4H PRN PRN Reason: Pain (Mild 1-3)/fever Enoxaparin Sodium (Lovenox) 40 mg SUBCUT Q24H [facility] Sodium Chloride (Normal Saline) 1,000 mls @ 125 mls/hr IV ASDIRECTED [facility] Last Admin: 09/14/17 08:41 Dose: 125 mls/hr Levofloxacin/Dextrose 500 mg/ (Premix) 100 mls @ 100 mls/hr IV Q24H [facility] Ibuprofen (Motrin) 800 mg PO Q6H PRN PRN Reason: Pain (mild 1-3) Morphine Sulfate (Morphine) 2 mg IVPUSH Q2H PRN PRN Reason: Pain (severe 7-10) Stop: 09/15/17 00:11 Last Admin: 09/14/17 09:06 Dose: 2 mg Ondansetron HCl (Zofran Odt) 4 mg PO Q4H PRN PRN Reason: nausea, able to take PO Ondansetron HCl (Zofran) 4 mg IVPUSH Q4H PRN PRN Reason: Nausea Temazepam (Restoril) 15 mg PO BEDTIME PRN PRN Reason: Sleep Valacyclovir HCl (Valtrex) 2,000 mg PO BID [facility] Stop: 09/15/17 00:30 Last Admin: 09/14/17 09:05 Dose: 2,000 mg Discontinued Medications Acetaminophen (Tylenol Extra Strength) 1,000 mg PO ONETIME ONE Stop: 09/13/17 23:08 Last Admin: 09/13/17 23:12 Dose: 1,000 mg Enoxaparin Sodium (Lovenox) 40 mg SUBCUT DAILY [facility] Last Admin: 09/14/17 00:44 Dose: 40 mg Levofloxacin/Dextrose 750 mg/ (Premix) 150 mls @ 100 mls/hr IV ONETIME ONE Stop: 09/13/17 23:32 Last Admin: 09/13/17 22:16 Dose: 100 mls/hr Sodium Chloride (Normal Saline) 1,000 mls @ 999 mls/hr IV .BOLUS ONE Stop: 09/13/17 23:01 Last Admin: 09/13/17 22:14 Dose: 999 mls/hr Ketorolac Tromethamine (Toradol) 30 mg IVPUSH ONETIME ONE Stop: 09/13/17 23:08 Last Admin: 09/13/17 23:13 Dose: 30 mg Morphine Sulfate (Morphine) 2 mg IVPUSH Q2H PRN PRN Reason: Pain (severe 7-10) Stop: 09/15/17 00:11 Last Admin: 09/14/17 00:43 Dose: 2 mg - Exam General: Alert, Oriented, Cooperative HEENT: Pupils Equal Neck: Supple Lungs: Clear to Auscultation, Normal Respiratory Effort Cardiovascular: Regular Rate, Regular Rhythm GI/Abdominal Exam: Normal Bowel Sounds, Soft, Non-Tender Back Exam: CVA Tenderness (L), CVA Tenderness (R) Extremities: Normal Inspection, Non-Tender, No Pedal Edema, Normal Capillary Refill Peripheral Pulses: 3+: Posterior Tibial (L), Posterior Tibial (R) Skin: Warm Psy/Mental Status: Alert, Normal Affect, Normal Mood - Problem List Review Problem List Initiated/Reviewed/Updated: Yes - My Orders Last 24 Hours: My Active Orders 09/14/17 11:19 Abdomen Pelvis wo Cont [CT] Routine - Plan Plan:: Assessment: #1. Suspected 6 mm kidney stone in the left upper kidney seen on ultrasound #2. Bilateral flank pain secondary to #1 Plan: #1. CT abdomen and pelvis without contrast for further evaluation of this possible stone #2. Depending on the size of the stone, patient may need a urology consult #3. Continue with symptomatic management and pain control for now and with antibiotic For possible pyelonephritis
--- NOTE | 2017-09-14 13:20 | CT ---
CT of the abdomen and pelvis without contrast. HISTORY: Pain TECHNIQUE: Axial CT images were obtained of the abdomen and pelvis without contrast. Coronal and sagi ttal reconstructions obtained. FINDINGS: The lung bases are clear, no pleural effusion. The liver, spleen, adrenal glands, and pancreas appear unremarkable for noncontrast examination. The gallbladder appears normal. There is no bulky retroperitoneal lymphadenopathy. No abdominal ascites. There are no calcifications noted within the kidneys or along the courses of the ureters bilaterally. Left renal cyst. The large and small bowel are normal in caliber without evidence of obstruction. The appendix appears normal. There is no bulky pelvic lymphadenopathy. Trace free fluid, likely physiologic. No free air. The urinary bladder appears normal. There is an IUD noted within the uterus. The visualized osseous structures appear normal. IMPRESSION: 1. No acute findings within the abdomen or pelvis. 2. No renal stone identified.
--- NOTE | 2017-09-14 13:42 | CR ---
EXAM DATE: 09/13/17 PATIENT'S AGE: 27 Patient: BENTLEY PEDROZA Facility: [place], [place] Site . Site : 1990 Study: XRay Chest [id number]/16/2018 10:32:13 PM Ordering Physician: Alexandre Epps Final Report: Indication: Chest and back pain Technique: Chest 1 view Comparison: None Findings/Impression: Cardiovascular and mediastinum: Heart size and vasculature are normal in caliber and appearance. Mediastinum is within normal limits. Lungs and pleural space: Lungs are clear. No sign of infiltrate or mass. No sign of pleural effusion. No pneumothorax. Bones and soft tissues: No significant findings. Dictated by Lauro Rowland MD @ 09/13/2017 10:52:23 PM Dictated by: Lauro Rowland MD @ 09/13/2017 22:52:29 (Electronic Signature) Report Signed by Proxy. LESLEY
[2017-09-14] MEDS: Ketorolac 30 MG/ML SDV IVPUSH SCH ×2 (17:35→22:43)
[2017-09-14] MEDS ORDERED: Levofloxacin/Dextrose 5%-Water 500 MG in Premix Bag 1 BAG IV SCH (20:00)
[2017-09-15] MEDS: Acetaminophen 325 MG Tab PO PRN ×2 (00:30→08:23)
[2017-09-15] MEDS: Sodium Chloride 0.9% 1,000 ML IV SCH ×2 (01:55→09:59)
[2017-09-15] MEDS: Ketorolac 30 MG/ML SDV IVPUSH SCH ×2 (04:37→10:58)
[2017-09-15 05:48] LABS: CHLORIDE,CL 113 mmol/L (98-110); SODIUM,NA 140 mmol/L (136-146)
[2017-09-15 09:27] VITALS: BP 125/84
== END 2017-09-15 13:10 | disposition home or self-care (01) ==
LOC: MW.ED 21:00 → MW.MS 22:41 → INTOOBSV 22:41
PROVIDERS: ADMIT Family Medicine; ATTEND Family Medicine
DX: N12 Tubulo-interstitial nephritis, not specified as acute or chronic (principal); E87.1 Hypo-osmolality and hyponatremia; F41.9 Anxiety disorder, unspecified; F31.9 Bipolar disorder, unspecified; F17.200 Nicotine dependence, unspecified, uncomplicated; B00.2 Herpesviral gingivostomatitis and pharyngotonsillitis; D72.829 Elevated white blood cell count, unspecified; K05.10 Chronic gingivitis, plaque induced; Z88.0 Allergy status to penicillin; Z91.018 Allergy to other foods
CPT/HCPCS: 36415; 71045; 74176; 76775; 80048; 80053; 81001; 84703; 85025; 87086; 87804; 96361; 96365; 96372; 96375; 96376; 99284; A9270; G0378; J1650; J1885; J1956; J2270; J7040; 99283

== ENCOUNTER 2019-03-16 08:39 | Emergency (ER) | payer SELFPAY ==
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
--- NOTE | 2019-03-16 09:58 | CR ---
INDICATION: Pain left foot. COMPARISON: None. TECHNIQUE: Two-view study left foot. FINDINGS: No evidence of fracture or dislocation. No bone or soft tissue abnormalities. IMPRESSION: Negative radiographic examination of the left foot. Dictated by Arianna Mccray MD @ Mar 16 2019 9:56AM Signed by Dr. Arianna Mccray @ Mar 16 2019 9:57AM
[2019-03-16 10:18] VITALS: BP 118/77
== END 2019-03-16 10:19 | disposition home or self-care (01) ==
LOC: MW.ED 08:39
DX: S90.112A Contusion of left great toe without damage to nail, initial encounter (principal); Z88.1 Allergy status to other antibiotic agents; Z91.040 Latex allergy status; Z91.018 Allergy to other foods; W50.0XXA Accidental hit or strike by another person, initial encounter
CPT/HCPCS: 73620-26-LT; 73620-LT; 99283-25

== ENCOUNTER 2022-03-29 16:55 | Emergency (ER) | payer SELFPAY ==
[2022-03-29] MEDS ORDERED: Sodium Chloride 0.9% 1,000 ML IV ONE (18:07)
[2022-03-29] MEDS ORDERED: Ondansetron 4 MG/2 ML SDV IVPUSH ONE (18:07)
[2022-03-29] MEDS ORDERED: Metoclopramide 10 MG/2 ML SDV IV ONE (18:08)
[2022-03-29] MEDS ORDERED: Ketorolac 30 MG/ML SDV IVPUSH ONE (18:08)
[2022-03-29] MEDS ORDERED: diphenhydrAMINE 50 MG/ML SDV IVPUSH ONE (18:08)
[2022-03-29 20:04] VITALS: BP 107/48; PULSE 69
== END 2022-03-29 20:03 | disposition home or self-care (01) ==
LOC: MW.ED 16:55
DX: G43.909 Migraine, unspecified, not intractable, without status migrainosus (principal); Z91.040 Latex allergy status; Z91.018 Allergy to other foods; Z88.0 Allergy status to penicillin; Z20.822 Contact with and (suspected) exposure to COVID-19
CPT/HCPCS: 87635; 96361; 96374; 96375; 99283; J1200; J1885; J2405; J2765; J7030; 99284; U0002

== ENCOUNTER 2023-09-25 10:21 | Emergency (ER) | payer SELFPAY ==
[2023-09-25] MEDS ORDERED: Sodium Chloride 0.9% 10 ML Syringe FLUSH PRN (10:35)
[2023-09-25] MEDS ORDERED: Sodium Chloride 0.9% 2.5 ML Syringe FLUSH PRN (10:35)
[2023-09-25] MEDS ORDERED: Lactated Ringers 1,000 ML IV ONE ×2 (10:39→11:45)
[2023-09-25] MEDS ORDERED: Morphine 4 MG/ML Syringe IVPUSH ONE (10:39)
[2023-09-25] MEDS ORDERED: Ondansetron 4 MG/2 ML SDV IVPUSH ONE (10:40)
[2023-09-25] MEDS ORDERED: Famotidine 20 MG/2 ML SDV IVPUSH ONE (10:40)
[2023-09-25] MEDS ORDERED: cefTRIAXone 1 GM in Sodium Chloride 0.9% 50 ML IV ONE (10:41)
[2023-09-25] MEDS ORDERED: Acetaminophen 325 MG Tab PO ONE (10:45)
[2023-09-25 11:08] LABS: BASE EXCESS VENOUS 4.8 (-2.0-3.0); PH,VENOUS 7.54 (7.31-7.41)
[2023-09-25 11:18] LABS: HEMATOCRIT 32.2 % (37.0-47.0); HEMOGLOBIN 11.7 g/dL (12.0-16.0); MEAN CORPUSCULAR HEMOGLOBIN 29.1 pg (28.0-32.0); MEAN CORPUSCULAR HGB CONC 36.3 g/dL (32.0-36.0); MEAN CORPUSCULAR VOLUME 80.1 fL (83.0-99.0); MEAN PLATELET VOLUME 13.8 fL (9.4-12.3); RED BLOOD CELL COUNT 4.02 M/uL (4.10-5.30); WHITE BLOOD CELL COUNT,WBC 21.94 K/uL (3.9-11.3)
[2023-09-25 11:27] LABS: CORONAVIRUS COVID-19 NAA NEGATIVE (NEGATIVE); INFLUENZA A NAA NEGATIVE (NEGATIVE); INFLUENZA B NAA NEGATIVE (NEGATIVE); RESPIRATORY SYNCYTIAL VIR NAA NEGATIVE (NEGATIVE)
[2023-09-25 11:30] LABS: PLATELET COUNT,PLT 85 K/uL (150-400)
[2023-09-25 11:38] LABS: LACTIC ACID 1.8 mmol/L (0.4-2.0)
[2023-09-25 11:45] LABS: A/G RATIO 0.4 (0.9-1.6); ALANINE AMINOTRANSFERASE,ALT 48 IU/L (14-63); ALBUMIN 1.7 g/dL (3.4-5.0); ALKALINE PHOSPHATASE 173 U/L (46-116); ASPARTATE AMNIOTRANSFERASE,AST 103 IU/L (15-37); BILIRUBIN TOTAL 3.3 mg/dL (0.2-1.0); BLOOD UREA NITROGEN,BUN 22 mg/dL (7.0-18.0); CALCIUM 7.5 mg/dL (8.5-10.1); CARBON DIOXIDE,CO2 26.3 mmol/L (21.0-32.0); CHLORIDE,CL 87 mmol/L (98-107); CREATININE 0.9 mg/dL (0.6-1.0); EST CRCL DRUG DOSING (CG) 71.63 mL/min; GLUCOSE RANDOM 112 mg/dL (74-106); LIPASE 28 U/L (16-77); MAGNESIUM 2.5 mg/dL (1.8-2.4); POTASSIUM,K 3.7 mmol/L (3.5-5.1); PROTEIN TOTAL,TP 6.3 g/dL (6.4-8.2); SODIUM,NA 124 mmol/L (136-145); TSH ULTRASENSITIVE 0.22 uIU/mL (0.36-3.74)
[2023-09-25 11:48] LABS: ESTIMATED GFR 88 mL/min (>60); ETHANOL BLOOD MEDICAL < 3.0 mg/dL
[2023-09-25 11:49] LABS: BAND ABSOLUTE MAN 1.32; BAND PERCENT MAN 6 %; LYMPHOCYTES ABSOLUTE MAN 0.88 K/uL (1.00-4.80); LYMPHOCYTES PERCENT MAN 4 % (24-44); MONOCYTES ABSOLUTE MAN 2.63 K/uL (0.00-0.80); MONOCYTES PERCENT MAN 12 % (0-8); SEG NEUTROPHILS ABSOLUTE MAN 17.11 K/uL (1.80-7.70); SEG NEUTROPHILS PERCENT MAN 78 % (41-71)
[2023-09-25 11:50] LABS: PLATELET COUNT ESTIMATE DECREASED; TOXIC GRANULATION 1+ SLIGHT
[2023-09-25] MEDS ORDERED: Iopamidol 755 MG/ML 500 ML Multipack Bottle IVPUSH STA (11:54)
[2023-09-25 12:07] LABS: T4 FREE 1.65 ng/dL (0.76-1.46)
[2023-09-25] MEDS ORDERED: Ibuprofen 400 MG Tab PO ONE (12:27)
[2023-09-25 12:42] LABS: APPEARANCE,URINE CLEAR; BILIRUBIN,URINE NEGATIVE (NEGATIVE); COLOR,URINE YELLOW; GLUCOSE,URINE NEGATIVE (NEGATIVE); KETONES,URINE NEGATIVE (NEGATIVE); LEUKOCYTE ESTERASE,URINE NEGATIVE (NEGATIVE); NITRITE,URINE NEGATIVE (NEGATIVE); OCCULT BLOOD,URINE MODERATE (NEGATIVE); PH,URINE 5.5 (5.0-8.0); PROTEIN,URINE NEGATIVE (NEGATIVE)
[2023-09-25 12:50] LABS: AMPHETAMINES SCREEN, URINE NEGATIVE (CUTOFF=500); BARBITURATE SCREEN,URINE NEGATIVE (CUTOFF=200); BENZODIAZEPINES SCREEN,URINE NEGATIVE (CUTOFF=150); BUPRENORPHINE SCREEN,URINE NEGATIVE (CUTOFF=10); METHADONE SCREEN, URINE NEGATIVE (CUTOFF=200); METHAMPHETAMINES SCREEN, URINE NEGATIVE (CUTOFF=500); OXYCODONE SCREEN,URINE NEGATIVE (CUT0FF=100); PCP SCREEN,URINE NEGATIVE (CUTOFF=25); THC SCREEN,URINE 20 NG/ML NEGATIVE (CUTOFF=50)
[2023-09-25 12:52] LABS: BACTERIA,URINE FEW (NEGATIVE); EPITHELIAL CELLS,URINE MODERATE (NONE-FEW)
[2023-09-25] MEDS ORDERED: Doxycycline 100 MG Cap PO ONE (13:14)
[2023-09-25] MEDS ORDERED: Levofloxacin/Dextrose 5%-Water 750 MG in Premix Bag 1 BAG IV ONE (13:16)
[2023-09-25] MEDS ORDERED: Diltiazem 25 MG/5 ML SDV IVPUSH ONE (15:03)
[2023-09-25 16:13] VITALS: BP 100/56; PULSE 124
== END 2023-09-25 15:40 ==
LOC: MW.ED 10:21
DX: J18.9 Pneumonia, unspecified organism (principal); R00.0 Tachycardia, unspecified; F17.210 Nicotine dependence, cigarettes, uncomplicated; Z88.0 Allergy status to penicillin; Z91.018 Allergy to other foods; Z91.040 Latex allergy status
CPT/HCPCS: 0241U; 36415; 71045; 74177; 80053; 80305; 80307; 81001; 81025; 82803; 82947; 83605; 83690; 83735; 84439; 84443; 84484; 85025; 87040; 93005; 96361; 96365; 96366; 96367; 96368; 96375; 99285; A9270; J0696; J1956; J2270; J2405; J3370; J3490; J7050; J7120; Q9967; 93010; 99284

== ENCOUNTER 2024-01-28 08:14 | Emergency (ER) | payer SELFPAY ==
[2024-01-28 08:25] VITALS: BP 181/118; PULSE 132
== END 2024-01-28 08:28 | disposition left against medical advice (07) ==
LOC: MW.ED 08:14
DX: Z53.21 Procedure and treatment not carried out due to patient leaving prior to being seen by health care provider (principal)